=== PATIENT | female | born 1945 | race Hispanic/Latino ===

== ENCOUNTER 2020-01-21 15:09 | Outpatient (CLI) | payer MEDICARE, OTHER, SELFPAY ==
--- NOTE | ~2020-01-21 | MM_ITS ---
EXAMINATION: MM screening [facility] w lisa HISTORY: Screening mammogram TECHNIQUE: Craniocaudal and mediolateral oblique 3-D tomosynthesis images were obtained and synthetic 2-D images were generated. CAD analysis was submitted and interpreted. COMPARISON: 12/06/2018, 11/23/2017 bilateral digital screening mammogram examinations 11/29/2017 diagnostic left digital mammogram BREAST PARENCHYMAL COMPOSITION: The breasts are heterogeneously dense, which may obscure small masses . FINDINGS: Occasional benign calcifications. There is no evidence of suspicious mass, calcification, o r architectural distortion to suggest malignancy in either breast. There has been no suspicious inter junior change. IMPRESSION: 1. No mammographic evidence of malignancy. 2. Recommend routine screening mammography in one year. BI-RADS Category 2: Benign finding(s). Reviewed, dictated and finalized at location A.
== END 2020-01-21 15:10 | disposition home or self-care (01) ==
PROVIDERS: PCP Internal Medicine; Visit Provider Obstetrics & Gynecology Gynecology
DX: Z12.31 Encounter for screening mammogram for malignant neoplasm of breast (principal)
CPT/HCPCS: 77063; 77067

== ENCOUNTER 2020-09-23 13:56 | Emergency (ER) | payer MEDICARE, OTHER, SELFPAY ==
[2020-09-23] VITALS (14 sets, daily range): BP systolic 139–156; BP diastolic 91–100; PULSE 52–69; RESP 11–19; TEMP 36.5; O2SAT 94–100
--- NOTE | ~2020-09-23 | XR_ITS ---
EXAMINATION: XR knee RT min 4V DATE: 09/23/2020 15:47 INDICATION: Right knee injury. TECHNIQUE: 4 views of right knee were obtained. COMPARISON: Right knee radiographs 12/15/2017 FINDINGS: Bone alignment is normal. No fracture. There is mild tricompartmental osteoarthritis charac terized by tiny marginal osteophytes. No knee joint effusion. IMPRESSION: 1. Mild right knee osteoarthritis. Reviewed, dictated and finalized at location A.
--- NOTE | ~2020-09-23 | XR_ITS ---
XR wrist LT min 3V 09/23/2020 15:47 Indication: Left wrist pain Procedure: 4 views left wrist Comparison: No prior studies for comparison. Findings: Osteopenia. No fracture or traumatic malalignment. There are mild degenerative changes of t he first 6 carpometacarpal joint and MCP joints. Impression: 1: No acute fracture. Reviewed, dictated and finalized at location B. Impression: 1: No acute fracture.
--- NOTE | ~2020-09-23 | XR_ITS ---
EXAMINATION: XR chest 2V DATE: 09/23/2020 15:47 INDICATION: Atrial fibrillation. Fall. TECHNIQUE: Frontal and lateral views of the chest were obtained. COMPARISON: Chest 2 views 11/04/2005, CT abdomen and pelvis 01/17/2015 FINDINGS: There is mild atelectasis at left lung base. No pleural effusion or pneumothorax. Cardiomeg rose is noted. IMPRESSION: 1. Mild atelectasis at left lung base. 2. Cardiomegaly. Reviewed, dictated and finalized at location A.
--- NOTE | ~2020-09-23 | XR_ITS ---
XR hand LT min 3V 09/23/2020 15:46 Indication: Left hand pain Procedure: 3 views left hand Comparison: 09/23/2020 Findings: There is mild polyarticular osteoarthritis. There is a small radiopaque foreign body in the soft tissues overlying the first distal phalanx. There is a healed second metacarpal neck fracture. Osteopenia. No acute fracture or traumatic malalignment. Impression: 1: No acute fracture. 2: Small foreign body overlying the first distal phalanx Reviewed, dictated and finalized at location B. Impression: 1: No acute fracture. 2: Small foreign body overlying the first distal phalanx
--- NOTE | ~2020-09-23 | XR_ITS ---
XR knee LT min 4V 09/23/2020 15:46 Indication: Left ninth rib fracture. Procedure: 4 views of the left knee Comparison: 12/15/2017 Findings: There is mild osteoarthritis of the left knee. No fracture, subluxation or dislocation. Ost eopenia. Small joint effusion. Impression: 1: No acute fracture. Reviewed, dictated and finalized at location B. Impression: 1: No acute fracture.
--- NOTE | ~2020-09-23 | CT_ITS ---
EXAMINATION: CT lumbar spine wo con DATE: 09/23/2020 15:18 INDICATION: Low back pain. Fall. TECHNIQUE: Computed tomography (CT) of the lumbar spine was performed without intravenous contrast. A utomated exposure control and iterative reconstruction technique were employed. The dose-length produ ct was 1138.99 mGy-cm. COMPARISON: None FINDINGS: There is 7 degrees levocurvature of lumbar spine. Vertebral body heights are normal. There is decreased disc height at L3-L4 with interbody fusion. There is a benign bone island in L5 vertebra l body. The following disc levels are specifically discussed: L1-L2: The disc is bulging. There is mild bilateral facet joint osteoarthritis. There is mild bilater al neural foraminal stenosis. There is mild central canal stenosis. L2-L3: The disc is bulging. There is severe right and moderate left facet joint osteoarthritis. There is mild bilateral neural foraminal stenosis. There is mild central canal stenosis. L3-L4: There is ankylosis of the facet joints with moderate hypertrophy. There is mild right and mode rate left neural foraminal stenosis. There is no central canal stenosis. L4-L5: The disc is bulging. There is severe bilateral facet joint osteoarthritis. There is mild bilat eral neural foraminal stenosis. There is mild central canal stenosis. L5-S1: The disc does not extend beyond the endplate margin. There is severe bilateral facet joint ost eoarthritis. There is mild bilateral neural foraminal stenosis. There is no central canal stenosis. IMPRESSION: 1. No fracture. 2. Moderate lumbar spondylosis. Reviewed, dictated and finalized at location A.
--- NOTE | ~2020-09-23 | XR_ITS ---
XR wrist RT min 3V 09/23/2020 15:47 Indication: Right wrist pain Procedure: 4 views right wrist Comparison: 01/20/2007 Findings: No fracture, subluxation or dislocation. There is mild polyarticular osteoarthritis. No foc al soft tissue abnormality. No foreign bodies. Impression: 1: No acute fracture. Reviewed, dictated and finalized at location B. Impression: 1: No acute fracture.
--- NOTE | ~2020-09-23 | CT_ITS ---
EXAMINATION: CT brain wo con DATE: 09/23/2020 15:18 INDICATION: Status post fall. Head injury. Laceration to the nose. Patient on blood thinners. TECHNIQUE: Computed tomography (CT) of the head was performed without intravenous contrast. The dose- length product was 605.33 mGy-cm. Automated exposure control and iterative reconstruction technique w ere employed. COMPARISON: None FINDINGS: No acute intracranial hemorrhage, infarction, mass or mass effect. Mild generalized atrophy . There are scattered mild periventricular and subcortical white matter changes, most likely related to small vessel ischemic disease (microangiopathy). Paranasal sinuses and mastoids are pneumatized. N o depressed skull fractures. IMPRESSION: 1. No acute intracranial abnormality. 2: Chronic age-related findings. Reviewed, dictated and finalized at location B.
--- NOTE | ~2020-09-23 | CT_ITS ---
EXAMINATION: 1. CT facial & cervical spine wo DATE: 09/23/2020 15:18 INDICATION: Head injury with laceration to nose post fall. TECHNIQUE: 1. Computed tomography (CT) of the maxillofacial region and of the cervical spine were performed with out intravenous contrast. Sagittal and coronal reconstructions of both regions were obtained. Automat ed exposure control and iterative reconstruction technique were employed. The dose-length product was 358 mGy-cm. COMPARISON: None. FINDINGS: Maxillofacial CT: There is a deep laceration at the bridge of the nose which appears to extend to the level of the bone . There is a tiny minimally displaced fracture at the anterior tip of the right nasal bone with sligh tly deeper small focus of soft tissue gas consistent with an open fracture. No other maxillofacial fr actures identified. Specifically the maldonado of the orbits and paranasal sinuses, the zygomatic arches, pterygoid plates and mandible remain intact. Temporomandibular joints are normal alignment with mild osteoarthritis in the left and severe on the right. Bilateral orbits are normal. Mild mucosal thicke salma in the bilateral ethmoid and maxillary sinuses. Mastoid air cells and middle ear cavities are cl ear. Cervical spine CT: 13 degree lower cervical levocurvature. Sagittal alignment is normal. Vertebral body heights are norm al. No fracture and a cervical or visualized upper thoracic spine. Mild disc height loss at C5-C6 thr ough T2-T3. Bilateral multilevel mild to moderate cervical uncovertebral osteoarthritis most prominen t on the right at C4-C5 and C5-C6. There is also moderate bilateral multilevel cervical facet osteoar thritis. This results in moderate neural foraminal stenosis on the right at C4-C5 and C5-C6 with mini mal to mild neural foraminal stenosis at a few additional cervical levels on the left and right. No c entral canal stenosis. Minimal atelectasis at the apices of lungs likely related to expiratory phase of imaging. Status post thyroidectomy with multiple surgical clips at the thyroid bed. IMPRESSION: 1. Tiny minimally displaced fracture at the anterior tip of the right nasal bone which is likely open given the deep laceration and small focus of gas in the adjacent soft tissues. No other maxillofacia l fractures. 2. Mild cervical levocurvature with mild to moderate spondylosis but no acute osseous abnormality. Reviewed, dictated and finalized at location A. IMPRESSION: 1. Tiny minimally displaced fracture at the anterior tip of the right nasal bon e which is likely open given the deep laceration and small focus of gas in the adjacent soft tissues. No other maxillofacial fractures. 2. Mild cervical levocurvature with mild to moderate spondylosis but no acute o sseous abnormality.
--- NOTE | 2020-09-23 16:29 | ED.FALL ---
HPI - Fall General Chief Complaint: Fall <DO Gisele Cifuentes Last Filed: 09/23/20 17:01> Stated Complaint: FALL <DO Gisele Cifuentes Last Filed: 09/23/20 17:01> Time Seen by Provider: 09/23/20 14:24 <DO Gisele Cifuentes Last Filed: 09/23/20 17:01> History of Present Illness HPI Narrative: Patient presents to emergency department from home via EMS for fall. Patient states that she was walking carrying a box and trying to attempt to open a door when she slipped and fell she states that she did strike her face and has a laceration of her nose she notes pain in the posterior neck as well as the bilateral wrists as well as the bilateral knees she was able to get up and walk following the fall patient states she is on blood thinner she is unsure of her last tetanus shot she denies any loss of consciousness, chest pain shortness of breath, numbness or tingling in the extremities or any other symptoms <DO Gisele Cifuentes Last Filed: 09/23/20 17:01> Related Data Allergies/Adverse Reactions: Allergies Allergy/AdvReac Type Severity Reaction Status Date / Time Quinolones Allergy Mild Anaphylactic Verified 07/29/15 21:26 Shock aspirin Allergy Unknown Verified 08/14/15 13:53 ciprofloxacin Allergy Unknown Verified 12/18/17 16:07 iodine Allergy Unknown Verified 12/18/17 16:07 Contrast Media Allergy Mild Anaphylactic Uncoded 07/29/15 21:26 Shock <DO Gisele Cifuentes Last Filed: 09/23/20 17:01> Review of Systems Review of Systems: Narrative: Gen.: Denies fevers or chills Eyes: Denies eye pain or visual change ENT: Denies congestion Respiratory: Denies shortness of breath or cough CV: Denies chest pain or palpitations GI: Denies abdominal pain nausea, emesis or diarrhea Musculoskeletal: See HPI Neuro: Denies numbness, tingling, weakness or focal weakness Skin: Reports laceration to the Except as documented, all other systems reviewed and negative <DO Gisele Cifuentes Last Filed: 09/23/20 17:01> [facility] Past Medical History Medical History: Medical History (Updated 09/23/20 @ 17:00 by Sree Sharma DO) Hypercholesterolemia <Sree Sharma DO - Last Filed: 09/23/20 17:01> Family History Family History: Family History (Updated 12/18/17 @ 16:13 by DOCTOR UNKNOWN) Other Family history of arthritis <Sree Sharma DO - Last Filed: 09/23/20 17:01> Social History Social History: Social History Smoking status: Never smoker Alcohol intake: never <Sree Sharma DO - Last Filed: 09/23/20 17:01> Exam Narrative: Exam Narrative: APPEARANCE: No acute distress, nontoxic, resting in bed EYES: EOMI, PERRL HEENT: Normocephalic, superficial abrasions over forehead with a 2 cm laceration over the bridge of the nose with overlying macerated skin and swelling with mild bleeding no tenderness of the bilateral zygomatic arch full range of motion of the jaw without pain Neck: Supple no midline tenderness palpation tender palpation bilateral paravertebral muscles C5-7 RESPIRATORY: No respiratory distress Clear to auscultation bilaterally with no rhonchi wheezing or rales. CARDIOVASCULAR: Regular rate and rhythm without murmurs rubs or gallops. ABDOMINAL: Soft, nontender, nondistended, no rebound or guarding Back: No midline thoracic lumbar tenderness palpation tender palpation bilateral para 2 muscles L1-3 MUSCULOSKELETAl: Moves all extremities. No clubbing, cyanosis or edema. Tender to palpation of the bilateral dorsal wrist no swelling or ecchymosis no tenderness of the bilateral elbows or shoulders tenderness palpation over the base of the first and second digit over the palmar aspect full flexion-extension of all 5 MCP and IP joints bilateral radial pulse 2+, no tenderness of the bilateral hips or ankles, the bilateral anterior knees are tender palpation with a superficial abrasion over the l
[2020-09-23] MEDS: TETANUS,DIPHTHERIA,AC PERTUSSIS ADULT (0.5 ML) BOOSTRIX IM (16:48)
[2020-09-23] MEDS: CEPHALEXIN 500 MG CAPSULE PO (16:49)
== END 2020-09-23 17:10 | disposition home or self-care (01) ==
PROVIDERS: Emergency Provider Emergency Medicine; PCP Internal Medicine
DX: S02.2XXB Fracture of nasal bones, initial encounter for open fracture (principal); S80.212A Abrasion, left knee, initial encounter; S60.212A Contusion of left wrist, initial encounter; S60.211A Contusion of right wrist, initial encounter; M54.5 Low back pain; Z23 Encounter for immunization; W01.0XXA Fall on same level from slipping, tripping and stumbling without subsequent striking against object, initial encounter
CPT/HCPCS: 12011; 70450; 70486; 71046; 72125; 72131; 73110; 73130; 73564; 90471; 90715; 99284; A9270

== ENCOUNTER 2020-12-18 10:46 | Outpatient (CLI) | payer MEDICARE, OTHER, SELFPAY ==
[2020-12-18 13:37] LABS: Thyroid Stimulating Hormone 0.944 uIU/mL (0.465-4.680)
== END 2020-12-18 10:47 | disposition home or self-care (01) ==
LOC: ANHLAB 10:52
PROVIDERS: PCP Internal Medicine; Visit Provider Internal Medicine Endocrinology, Diabetes & Metabolism
DX: E89.0 Postprocedural hypothyroidism (principal)
CPT/HCPCS: 36415; 84443

== ENCOUNTER 2021-02-10 08:38 | Outpatient (CLI) | payer MEDICARE, OTHER, SELFPAY ==
--- NOTE | ~2021-02-10 | MM_ITS ---
EXAMINATION: MM screening [facility] BI w lisa HISTORY: Screening mammogram TECHNIQUE: Craniocaudal and mediolateral oblique 3-D tomosynthesis images were obtained and synthetic 2-D images were generated. CAD analysis was submitted and interpreted. COMPARISON: 01/21/2020, 12/06/2018 BREAST PARENCHYMAL COMPOSITION: The breasts are heterogeneously dense, which may obscure small masses . FINDINGS: There is an approximately 7 mm partially calcified circumscribed mass, consistent with smal l benign fibroadenoma. There is no evidence of suspicious mass, calcification, or architectural dis tortion to suggest malignancy in either breast. There has been no suspicious interval change. IMPRESSION: 1. No mammographic evidence of malignancy. 2. Recommend routine screening mammography in one year. BIRADS Category 2: Benign Reviewed, dictated and finalized at location A. 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
== END 2021-02-10 08:39 | disposition home or self-care (01) ==
LOC: ANHIMG 08:41
PROVIDERS: PCP Internal Medicine; Visit Provider Obstetrics & Gynecology Gynecology
DX: Z12.31 Encounter for screening mammogram for malignant neoplasm of breast (principal)
CPT/HCPCS: 77063; 77067

== ENCOUNTER 2021-03-05 07:51 | Outpatient (CLI) | payer MEDICARE, OTHER, SELFPAY ==
--- NOTE | ~2021-03-05 | DEXA_ITS ---
Bone Density Report Name: Vanessa Hong Age: 76 Sex: Female Ethnicity: White Date of : 1945 Indication: osteopenia; monitoring treatment; parental hip fracture; height loss; postmenopausal Referring Provider: JONATHON PENA Study: Bone densitometry was performed. Exam Date: March 05, 2021 Accession number: [id number] Bone Density: Region BMD T-score Z-score Classification AP Spine (L1-L4) 0.864 -1.7 0.7 Osteopenia Femoral Neck (Left) 0.552 -2.7 -0.6 Osteoporosis Total Hip (Left) 0.697 -2.0 -0.3 Osteopenia Total Hip Bilateral Avg 0.719 -1.9 -0.1 Osteopenia Femoral Neck (Right) 0.602 -2.2 -0.2 Osteopenia Total Hip (Right) 0.740 -1.7 0.1 Osteopenia World Health Organization criteria for BMD impression classify patients as: Normal (T-score at or above -1.0), Osteopenia (T-score between -1.0 and -2.5), or Osteoporosis (T-score at or below -2.5). 10-year Fracture Risk: FRAX not reported because: Some T-score for Spine Total or Hip Total or Femoral Neck at or below -2.5 Treated for osteoporosis Previous Exams: Region Exam Age BMD T-score BMD Change BMD Change Date g/cm2 vs Baseline vs Previous AP Spine(L1-L4) 03/05/2021 76 0.864 -1.7 0.079(10.1%)# 0.037(4.5%)* 12/06/2018 73 0.827 -2.0 0.042(5.4%)# 0.023(2.9%)* 10/17/2014 69 0.804 -2.2 0.019(2.4%)# 0.019(2.4%)# 12/04/2004 59 0.785 -2.4 Total Hip(Left) 03/05/2021 76 0.697 -2.0 -0.040(-5.4%)# -0.011(-1.5%) 12/06/2018 73 0.708 -1.9 -0.029(-3.9%)# -0.006(-0.8%) 10/22/2016 71 0.714 -1.9 -0.023(-3.1%)# 0.014(2.0%) 10/17/2014 69 0.700 -2.0 -0.037(-5.0%)# 0.001(0.2%)# 09/25/2012 67 0.699 -2.0 -0.038(-5.2%)# -0.038(-5.2%)# 12/04/2004 59 0.737 -1.7 Total Hip(Right) 03/05/2021 76 0.740 -1.7 -0.091(-11.0%) -0.037(-4.8%)* 12/06/2018 73 0.777 -1.3 -0.054(-6.5%)# -0.047(-5.7%)* 10/22/2016 71 0.824 -1.0 -0.007(-0.9%)# 0.051(6.6%)* 10/17/2014 69 0.773 -1.4 -0.058(-7.0%)# -0.001(-0.1%)# 09/25/2012 67 0.774 -1.4 -0.057(-6.9%)# -0.057(-6.9%)# 12/04/2004 59 0.831 -0.9 *Denotes significance at 95% confidence level, LSC for AP Spine = 0.022 g/cm2, LSC for Total Hip = 0.027 g/cm2 Clinical Information Provided by Patient: Parent has had a hip fracture Is being treated for osteoporosis Has used the following medications: Prolia (i.e. denosumab), Vitamin D Patient maximum height was 65 Menopause Age: 54 No regular weight bearing exercise Does not regularly c
== END 2021-03-05 07:52 | disposition home or self-care (01) ==
LOC: ANHIMG 07:52
PROVIDERS: PCP Internal Medicine; Visit Provider Obstetrics & Gynecology Gynecology
DX: Z78.0 Asymptomatic menopausal state (principal); M81.0 Age-related osteoporosis without current pathological fracture; M85.851 Other specified disorders of bone density and structure, right thigh; M85.852 Other specified disorders of bone density and structure, left thigh
CPT/HCPCS: 77080

== ENCOUNTER 2021-06-10 21:32 | Emergency (ER) | payer MEDICARE, OTHER, SELFPAY ==
--- NOTE | ~2021-06-10 | XR_ITS ---
EXAMINATION: XR foot RT min 3V DATE: 06/10/2021 21:53 INDICATION: Generalized right foot pain TECHNIQUE: Dorsoplantar, two oblique and lateral views of the right foot were obtained. COMPARISON: 04/30/2005 FINDINGS: Diffuse osteopenia. Alignment is normal. No acute fracture. Small corticated heterotopic ossicle vers us chronic nonunited fracture fragment along the anterior rim of the tibial plafond. Minimal to mild polyarticular osteoarthritis at multiple joints in the mid and forefoot. No erosions or periosteal re action. Soft tissues are unremarkable. No ankle joint effusion. IMPRESSION: 1. No acute osseous abnormality. Reviewed, dictated and finalized at location A. 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
[2021-06-10 21:35] VITALS: BP 149/95; PULSE 78; RESP 17; TEMP 36.6; O2SAT 100
--- NOTE | 2021-06-10 22:23 | ED.EXTPRO ---
HPI - Extremity Problem General Chief complaint: Extremity Problem,Nontraumatic Stated complaint: FOOT PAIN, NO INJURY Time Seen by Provider: 06/10/21 21:55 Source: patient Mode of arrival: EMS Limitations: no limitations History of Present Illness HPI Narrative: 76 year old female presents today with complaints of right foot pain that started tonight around 530. Patient denies trauma. States she was getting up and started to walk when the pain hit. Patient denies taking any medication for the pain at home. Denies pain getting better with ambulation. Patient had walked upstairs to get some tylenol and ended up calling 911 due to the pain. Related Data Home Medications Medication Instructions Recorded Confirmed alprazolam [Xanax] PO 03/17/21 atorvastatin PO 03/17/21 metoprolol succinate PO 03/17/21 rivaroxaban [Xarelto] PO 03/17/21 sertraline PO 03/17/21 Allergies Allergy/AdvReac Type Severity Reaction Status Date / Time Quinolones Allergy Mild Anaphylactic Verified 06/01/21 10:07 Shock aspirin Allergy Unknown Unknown Verified 06/01/21 10:07 ciprofloxacin Allergy Unknown Unknown Verified 06/01/21 10:07 iodine Allergy Unknown unknown Verified 06/01/21 10:07 Contrast Media Allergy Mild Anaphylactic Uncoded 06/01/21 10:07 Shock Review of Systems Review of Systems: CONSTITUTIONAL: Denies fever, chills, or sweats. EYES: Denies visual changes, redness, or discharge. ENT: Denies rhinorrhea, congestion, sore throat, or otalgia. CARDIOVASCULAR: Denies chest pain, palpitations, or edema. RESPIRATORY: Denies cough or dyspnea. GASTROINTESTINAL: Denies abdominal pain, nausea, vomiting, or diarrhea. GENITOURINARY: Denies dysuria or hematuria. SKIN: Denies rash or itching. MUSCULOSKELETAL: Right foot pain. Denies back pain, joint pain, or myalgia. NEUROLOGIC: Denies headache, numbness, dizziness, or weakness. PSYCHIATRIC: Denies anxiety or depression. [facility] Past Medical History Medical History Anxiety Arthritis Atrial fib/flutter, transient Depression Diarrhea Hair loss Hearing loss HLD (hyperlipidemia) HTN (hypertension) Hypercholesterolemia Hyperthyroidism Left knee DJD Osteopenia Right knee DJD Urinary frequency Wears glasses Surgical History Surgical History H/O thyroidectomy 2012 per patient questionnaire Family History Family History Other Family history of arthritis Social History Social History Smoking status: Never smoker Alcohol intake: never Substance use: never Substance use type: does not use Gender identity (if verbalized by the patient): Female Exam Narrative: GENERAL: Well-appearing, well-nourished, and in no acute distress. HEAD: Normocephalic, atraumatic. EYES: PERRLA and EOMI. ENT: Nares clear, no rhinorrhea or epistaxis. Mucous membranes moist. Oropharynx without tonsillar hypertrophy exudate or other lesions. Bilateral TMs pearly powers nonbulging NECK: Supple. No adenopathy or masses. No carotid bruits or JVD CHEST: Clear to auscultation. No respiratory distress. No wheezes rales or rhonchi HEART: Regular rate and rhythm. No murmur heard. Normal peripheral pulses. ABDOMEN: Soft, nontender, nondistended, normal active bowel sounds. EXTREMITIES: Pain to right heel and arch of foot on palpation normal range of motion. No edema. SKIN: Warm, dry, no rash. NEURO: No focal deficits. Alert and oriented x3. PSYCH: Normal mood and affect. Course Course Emergency Course: Patient and son aware of xray results. Plan discharge home. Tylenol for pain and to use a supportive shoe. Follow up with primary if pain persists. Patient and son in agreement with plan of care. Vital Signs Vital signs: Vital Signs Temperature 36.6 C 06/10/21 21:35 P
[2021-06-10] MEDS: ACETAMINOPHEN 500 MG TABLET 1000 MG PO (22:37)
== END 2021-06-10 23:00 | disposition home or self-care (01) ==
PROVIDERS: Emergency Provider Nurse Practitioner Family; PCP Internal Medicine
DX: M19.071 Primary osteoarthritis, right ankle and foot (principal); E78.5 Hyperlipidemia, unspecified; I10 Essential (primary) hypertension; E78.00 Pure hypercholesterolemia, unspecified; M85.80 Other specified disorders of bone density and structure, unspecified site; M17.0 Bilateral primary osteoarthritis of knee; F41.9 Anxiety disorder, unspecified; E89.0 Postprocedural hypothyroidism; Z79.01 Long term (current) use of anticoagulants; I48.91 Unspecified atrial fibrillation; I48.92 Unspecified atrial flutter
CPT/HCPCS: 73630; 99283; A9270

== ENCOUNTER 2021-11-05 11:05 | Outpatient (CLI) | payer MEDICARE, OTHER, SELFPAY ==
--- NOTE | ~2021-11-05 | XR_ITS ---
EXAMINATION: XR shoulder RT min 2V DATE: 11/05/2021 11:59 INDICATION: Right shoulder pain. TECHNIQUE: 4 views of right shoulder were obtained. COMPARISON: None. FINDINGS: Bone alignment is normal. No fracture. There is mild osteoarthritis of acromioclavicular radha int and glenohumeral joint. Surgical clips overlie the neck. IMPRESSION: 1. Mild polyarticular osteoarthritis. Reviewed, dictated and finalized at location A.
[2021-11-05 11:49] LABS: Basophils Absolute Auto 0.1 K/mm3 (0.0-0.1); Basophils Percent Auto 1.4 % (0.2-1.2); Eosinophils Absolute Auto 0.1 K/mm3 (0-0.3); Hematocrit 43.8 % (37.0-47.0); Hemoglobin 13.9 g/dL (12.0-15.0); Immature Granulocyte Absolute 0.01 K/mm3 (0.00-0.031); Immature Granulocyte Percent A 0.2 % (0-0.5); Lymphocytes Absolute Auto 1.44 K/mm3 (0.9-3.2); Lymphocytes Percent Auto 28.6 % (18.3-44.2); Mean Corpuscular HGB Conc 31.7 g/dl (32-36); Mean Corpuscular Hemoglobin 31.1 pg (26-34); Mean Platelet Volume 10.4 fl (7.4-10.4); Monocytes Absolute Auto 0.3 K/mm3 (0.1-0.6); Monocytes Percent Auto 6.5 % (2.6-8.5); Neutrophils Absolute Auto 3.1 K/mm3 (1.3-6.7); Neutrophils Percent Auto 61.3 % (45.5-73.1); Platelet Count Result 162 k/mm3 (150-375); Red Blood Count 4.47 M/mm3 (4.2-5.4); Red Cell Distribution Width 13.8 % (11.5-14.5)
[2021-11-05 11:54] LABS: Alanine Aminotransferase 21 U/L (6-35); Albumin Level 4.2 g/dL (3.5-5.1); Alkaline Phosphatase 91 U/L (38-126); Anion Gap 10 mmol/L (8-16); Aspartate Amino Transferase 25 U/L (14-36); Bilirubin,Total 0.9 mg/dL (0.2-1.3); Blood Urea Nitrogen 14 mg/dL (7-17); Calcium 10.5 mg/dL (8.4-10.2); Carbon Dioxide 26 mmol/L (22-30); Chloride 106 mmol/L (98-107); Cholesterol 147 mg/dL (0-200); Estimated Glomerular Filt Rate > 60; Glucose 92 mg/dL (65-110); HDL Direct 59 mg/dL; Sodium 142 mmol/L (137-145); Triglycerides 114 mg/dL (<150)
[2021-11-05 12:05] LABS: LDL Cholesterol Direct 55 mg/dL
[2021-11-05 12:56] LABS: Vitamin D 25 Hydroxy 79.9 ng/mL
== END 2021-11-05 11:06 | disposition home or self-care (01) ==
PROVIDERS: PCP Internal Medicine; Visit Provider Internal Medicine
DX: M25.511 Pain in right shoulder (principal); I10 Essential (primary) hypertension; E78.5 Hyperlipidemia, unspecified; I48.91 Unspecified atrial fibrillation; Z79.899 Other long term (current) drug therapy; M19.011 Primary osteoarthritis, right shoulder
CPT/HCPCS: 36415; 73030; 80053; 80061; 82306; 85025

== ENCOUNTER 2022-03-04 00:29 | Day surgery (SDC) | payer MEDICARE, OTHER, SELFPAY ==
[2022-02-23 10:55] VITALS: BMI 29.0
--- NOTE | 2022-03-03 16:44 | PM.HPGS ---
History of Present Illness History of Present Illness Consent: Risks, benefits, and alternatives have been discussed and questions answered. Patient agrees to proceed with procedure. Chief complaint: Hx of colon polyps Narrative: Vanessa Hong is a 77 year old female Who was referred for colon cancer screening. She had a tubular adenoma removed 5 years ago. Review of Systems Review of Systems: All systems reviewed & are unremarkable except as noted in HPI and below PMFSH Past Medical History Medical History Anxiety Arthritis Atrial fib/flutter, transient Depression Diarrhea Hair loss Hearing loss HLD (hyperlipidemia) HTN (hypertension) Hypercholesterolemia Hyperthyroidism Left knee DJD Osteopenia Right knee DJD Urinary frequency Wears glasses Surgical History Surgical History H/O thyroidectomy 2013 per patient questionnaire Family History Family History Other Family history of arthritis Social History Social History Smoking status: Never smoker Alcohol intake: former Substance use: never Substance use type: does not use Living arrangements: alone Gender identity (if verbalized by the patient): Female Spiritual care concerns: No Meds Home Medications and Allergies Home Medications Medication Instructions Recorded Confirmed Type acetaminophen 650 mg 650 mg PO Q8H PRN Pain 01/26/22 01/26/22 History tablet,extended release alprazolam 0.25 mg tablet 0.25 mg PO BID 01/26/22 02/23/22 History atorvastatin 10 mg tablet 10 mg PO DAILY 01/26/22 02/23/22 History levothyroxine 88 mcg tablet 88 mcg PO DAILY 01/26/22 02/23/22 History metoprolol succinate 50 mg 50 mg PO DAILY 01/26/22 02/23/22 History tablet,extended release 24 hr oxybutynin chloride 15 mg 15 mg PO DAILY 01/26/22 02/23/22 History tablet,extended release 24 hr pantoprazole 40 mg tablet,delayed 40 mg PO QAM PRN reflux 01/26/22 02/23/22 History release rivaroxaban 20 mg tablet (Xarelto) 20 mg PO QACDINNER 01/26/22 02/23/22 History sertraline 25 mg tablet 25 mg PO DAILY 01/26/22 02/23/22 History cholecalciferol (vitamin D3) 100 200 mcg PO HS 02/23/22 02/23/22 History mcg (4,000 unit) capsule denosumab 60 mg/mL subcutaneous 60 mg subcut [id number] 02/23/22 02/23/22 History syringe (Prolia) Allergies Allergy/AdvReac Type Severity Reaction Status Date / Time ciprofloxacin Allergy Severe Anaphylactic Verified 03/04/22 11:22 Shock iodine Allergy Severe Anaphylactic Verified 03/04/22 11:22 Shock Quinolones Allergy Severe Anaphylactic Verified 03/04/22 11:22 Shock aspirin AdvReac Severe Other Verified 03/04/22 11:22 Contrast Media Allergy Severe Anaphylactic Uncoded 02/23/22 10:56 Shock Exam Const: General: alert Orientation/consciousness: patient oriented x3 Resp: Auscultation: clear to auscultation bilaterally Cardio: Rate: regular rate Rhythm: regular rhythm GI: GI Palp: Yes Soft to palpation and No Tenderness to palpation present (GI) Neuro: General: patient oriented x3 Assessment and Plan Assessment and plan (1) Colon cancer screening: Code(s): Z12.11 - Encounter for screening for malignant neoplasm of colon Status: Acute Assessment and Plan: Colonoscopy with possible biopsy or polypectomy or cautery or injection of substances.
[2022-03-04 11:23] VITALS: BP 126/109; PULSE 95; RESP 16; TEMP 36.4; O2SAT 100
[2022-03-04] MEDS: LACTATED RINGERS 1,000 ML 150 ML IV CONT (11:31)
--- NOTE | 2022-03-04 11:44 | WPDANESEPPF ---
Anes - Initial Pre Proc Eval Procedure: Operation Date: 03/04/22 12:30 Proposed Procedures p Screening Colonoscopy - Adonay Diaz MD Date/Time: 03/04/22 11:44 Surgeon: Adonay Diaz MD Pre Op Diagnosis: Hx of colon polyps Patient Data Age: 77 Gender: F Height: 1.65 m Weight: 75.5 kg Last Vital Signs Temp 36.4 C 03/04/22 11:23 Pulse 95 03/04/22 11:23 Resp 16 03/04/22 11:23 BP 126/109 H 03/04/22 11:23 Pulse Ox 100 03/04/22 11:23 O2 Del Method Room Air 03/04/22 11:23 Allergies Allergy/AdvReac Type Severity Reaction Status Date / Time ciprofloxacin Allergy Severe Anaphylactic Verified 03/04/22 11:22 Shock iodine Allergy Severe Anaphylactic Verified 03/04/22 11:22 Shock Quinolones Allergy Severe Anaphylactic Verified 03/04/22 11:22 Shock aspirin AdvReac Severe Other Verified 03/04/22 11:22 Contrast Media Allergy Severe Anaphylactic Uncoded 02/23/22 10:56 Shock Home Medications Medication Instructions Recorded Confirmed Type acetaminophen 650 mg 650 mg PO Q8H PRN Pain 01/26/22 01/26/22 History tablet,extended release alprazolam 0.25 mg tablet 0.25 mg PO BID 01/26/22 02/23/22 History atorvastatin 10 mg tablet 10 mg PO DAILY 01/26/22 02/23/22 History levothyroxine 88 mcg tablet 88 mcg PO DAILY 01/26/22 02/23/22 History metoprolol succinate 50 mg 50 mg PO DAILY 01/26/22 02/23/22 History tablet,extended release 24 hr oxybutynin chloride 15 mg 15 mg PO DAILY 01/26/22 02/23/22 History tablet,extended release 24 hr pantoprazole 40 mg tablet,delayed 40 mg PO QAM PRN reflux 01/26/22 02/23/22 History release rivaroxaban 20 mg tablet (Xarelto) 20 mg PO QACDINNER 01/26/22 02/23/22 History sertraline 25 mg tablet 25 mg PO DAILY 01/26/22 02/23/22 History cholecalciferol (vitamin D3) 100 200 mcg PO HS 02/23/22 02/23/22 History mcg (4,000 unit) capsule denosumab 60 mg/mL subcutaneous 60 mg subcut [id number] 02/23/22 02/23/22 History syringe (Prolia) Patient hx anesthesia problems: none Family hx anesthesia problems: none Results Review: All pre-operative results and documents have been reviewed as part of the pre-operative evaluation. [facility] Past Medical History Medical History Anxiety Arthritis Atrial fib/flutter, transient Depression Diarrhea Hair loss Hearing loss HLD (hyperlipidemia) HTN (hypertension) Hypercholesterolemia Hyperthyroidism Left knee DJD Osteopenia Right knee DJD Urinary frequency Wears glasses Surgical History Surgical History H/O thyroidectomy 2013 per patient questionnaire Family History Family History Other Family history of arthritis Social History Social History Smoking status: Never smoker Alcohol intake: former Substance use: never Substance use type: does not use Living arrangements: alone Gender identity (if verbalized by the patient): Female Spiritual care concerns: No Anes - Eval Final PreProcedure Day of Procedure 03/04/22 11:44 Patient weight: overweight Heart: regular rate and rhythm Lungs: clear to auscultation Airway: Mallampati scale class II Neurological: alert and oriented Last oral intake: >/= 8 hours ASA classification: III Emergent: no Anesthetic plan: proceed Anesthesia type and monitoring: general GIVS and standard monitoring Results Review: All pre-operative results and documents have been reviewed as part of the pre-operative evaluation. Informed Consent: The patient's anesthetic plan and its attendant risks and benefits were discussed with the patient/family/POA. Questions were solicited and answers provided to the satisfaction of the patient/family/POA.
[2022-03-04 12:19] VITALS: BP 86/52; PULSE 102; RESP 21; O2SAT 93
[2022-03-04 12:29] VITALS: BP 91/54; PULSE 108; RESP 21; O2SAT 95
[2022-03-04 12:39] VITALS: BP 106/55; PULSE 100; RESP 18; O2SAT 99
== END 2022-03-04 12:49 | disposition home or self-care (01) ==
PROVIDERS: PCP Internal Medicine; Visit Provider Internal Medicine Gastroenterology
PROC: 0DJD8ZZ Inspection of Lower Intestinal Tract, Via Natural or Artificial Opening Endoscopic (ICD-10-PCS; CPT 45378; principal; 2022-03-04 12:30)
DX: Z12.11 Encounter for screening for malignant neoplasm of colon (principal); K51.40 Inflammatory polyps of colon without complications; K64.8 Other hemorrhoids; I10 Essential (primary) hypertension; E78.5 Hyperlipidemia, unspecified; F41.9 Anxiety disorder, unspecified; F32.A Depression, unspecified; M85.80 Other specified disorders of bone density and structure, unspecified site; I48.91 Unspecified atrial fibrillation; Z79.01 Long term (current) use of anticoagulants
CPT/HCPCS: 45385; 88305; J2704; J7120

== ENCOUNTER 2022-06-13 12:09 | Outpatient (CLI) | payer MEDICARE, OTHER, SELFPAY ==
--- NOTE | ~2022-06-13 | MM_ITS ---
EXAMINATION: MM screening michelle BI w lisa HISTORY: Screening mammogram TECHNIQUE: Craniocaudal and mediolateral oblique 3-D tomosynthesis images were obtained and synthetic 2-D images were generated. CAD analysis was submitted and interpreted. COMPARISON: 02/10/2021, 01/21/2020, 12/06/2018 lateral screening mammogram examinations BREAST PARENCHYMAL COMPOSITION: The breasts are heterogeneously dense, which may obscure small masses . FINDINGS: There is stable fibroglandular asymmetry. There is no evidence of suspicious mass, calcific ation, or architectural distortion to suggest malignancy in either breast. There has been no suspicio us interval change. IMPRESSION: 1. No mammographic evidence of malignancy. 2. Recommend routine screening mammography in one year. BI-RADS Category 1: Negative Reviewed, dictated and finalized at location A.
== END 2022-06-13 12:10 | disposition home or self-care (01) ==
LOC: ANHIMG 12:12
PROVIDERS: PCP Internal Medicine; Visit Provider Obstetrics & Gynecology Gynecology
DX: Z12.31 Encounter for screening mammogram for malignant neoplasm of breast (principal)
CPT/HCPCS: 77063; 77067

== ENCOUNTER 2022-07-07 10:15 | Outpatient (CLI) | payer MEDICARE, OTHER, SELFPAY ==
[2022-07-07 10:57] LABS: Alanine Aminotransferase 22 U/L (6-35); Albumin Level 4.7 g/dL (3.5-5.1); Alkaline Phosphatase 165 U/L (38-126); Anion Gap 8 mmol/L (8-16); Aspartate Amino Transferase 24 U/L (14-36); Bilirubin,Total 0.7 mg/dL (0.2-1.3); Blood Urea Nitrogen 17 mg/dL (7-17); Calcium 11.4 mg/dL (8.4-10.2); Carbon Dioxide 29 mmol/L (22-30); Chloride 107 mmol/L (98-107); Cholesterol 177 mg/dL (0-200); Estimated Glomerular Filt Rate > 60; Glucose 129 mg/dL (65-110); HDL Direct 70 mg/dL; Potassium 4.3 mmol/L (3.4-5.0); Sodium 144 mmol/L (137-145); Triglycerides 71 mg/dL (<150)
[2022-07-07 11:08] LABS: LDL Cholesterol Direct 77 mg/dL
== END 2022-07-07 10:16 | disposition home or self-care (01) ==
PROVIDERS: PCP Internal Medicine; Visit Provider Internal Medicine
DX: I10 Essential (primary) hypertension (principal); E78.5 Hyperlipidemia, unspecified
CPT/HCPCS: 36415; 80053; 80061

== ENCOUNTER 2022-11-07 13:36 | Outpatient (CLI) | payer MEDICARE, OTHER, SELFPAY ==
--- NOTE | ~2022-11-07 | XR_ITS ---
EXAMINATION:XR cervical spine 4-5V DATE: 11/07/2022 13:55 INDICATION: Neck pain TECHNIQUE: AP, lateral and odontoid views of the cervical spine are provided. COMPARISON: Cervical spine CT dated 09/23/2020 FINDINGS: Mild levocurvature at the cervicothoracic junction with partially visualized mild dextrocurvature in the upper thoracic spine. Sagittal alignment is normal. Odontoid is intact. Normal atlantoaxial inte rval. Vertebral body heights are normal. Disc spaces are normal. Multilevel bilateral mild to moderat e cervical facet osteoarthritis. There is mild to moderate uncovertebral osteoarthritis at the profil ed uncovertebral joints. Surgical clips at the anterior lower cervical spine consistent with prior th yroidectomy. Prevertebral soft tissues are normal. Visualized portion of the upper lungs are clear. IMPRESSION: 1. Mild to moderate cervical facet and uncovertebral osteoarthritis. Reviewed, dictated and finalized at location B.
== END 2022-11-07 13:37 | disposition home or self-care (01) ==
LOC: ANHIMG 13:41
PROVIDERS: PCP Internal Medicine; Visit Provider Internal Medicine
DX: M54.2 Cervicalgia (principal); M85.88 Other specified disorders of bone density and structure, other site
CPT/HCPCS: 72050

== ENCOUNTER 2023-05-15 12:52 | Outpatient (CLI) | payer MEDICARE, OTHER, SELFPAY ==
--- NOTE | ~2023-05-15 | XR_ITS ---
EXAMINATION: XR knee LT 3V DATE: 05/15/2023 13:11 INDICATION: Left knee pain and swelling. TECHNIQUE: 3 views of left knee including standing views were obtained. COMPARISON: Left knee radiographs 01/26/2021 FINDINGS: Bone alignment is normal. No fracture. There is mild tricompartmental osteoarthritis. No kn ee joint effusion. IMPRESSION: 1. Mild left knee osteoarthritis. Reviewed, dictated and finalized at location A. [facility] [employer]
== END 2023-05-15 12:53 | disposition home or self-care (01) ==
PROVIDERS: PCP Internal Medicine; Visit Provider Internal Medicine
DX: M17.12 Unilateral primary osteoarthritis, left knee (principal)
CPT/HCPCS: 73562

== ENCOUNTER 2023-06-28 10:44 | Outpatient (CLI) | payer MEDICARE, OTHER, SELFPAY ==
--- NOTE | ~2023-06-28 | DEXA_ITS ---
Bone Density Report Name: RASHMI SNEED Age: 78 Sex: Female Ethnicity: White Date of : 1945 Indication: postmenopausal; screening for osteoporosis; height loss; Referring Provider: JONATHON PENA Study: Bone densitometry was performed. Exam Date: June 28, 2023 Accession number: [id number] Bone Density: Region BMD T-score Z-score Classification AP Spine(L1-L4) 0.878 -1.5 0.9 Osteopenia Femoral Neck (Left) 0.508 -3.1 -0.9 Osteoporosis Total Hip (Left) 0.695 -2.0 -0.2 Osteopenia Femoral Neck (Right) 0.617 -2.1 0.1 Osteopenia Total Hip (Right) 0.783 -1.3 0.6 Osteopenia Total Hip Mean 0.739 -1.7 0.2 Osteopenia World Health Organization criteria for BMD impression classify patients as: Normal (T-score at or above -1.0), Osteopenia (T-score between -1.0 and -2.5), or Osteoporosis (T-score at or below -2.5). 10-year Fracture Risk: FRAX not reported because: Some T-score for Spine Total or Hip Total or Femoral Neck at or below -2.5 Treated for osteoporosis Clinical Information Provided by Patient: Is being treated for osteoporosis Has used the following medications: Prolia (i.e. denosumab), Vitamin D Patient maximum height was 64 Menopause Age: 54 Does not regularly consume dairy products Drinks caffeinated beverages Onset of menses at age 17 Number of children 0 Impression: The patient has osteoporosis, based on the Left Femoral Neck T-score. Discussion: It is important to ask patients whether they are taking their medications and to encourage continued and appropriate compliance with their osteoporosis therapies to reduce fracture risk. It is also important to review their risk factors and encourage appropriate calcium and vitamin D intakes, exercise, fall prevention and other lifestyle measures. Follow-Up: Consider a repeat BMD and Vertebral Fracture Assessment (VFA) exam in 2 years or sooner if medically necessary, to reassess this patient's status. Reported by: RENETTA on 06/28/2023 11:25:00 AM. Reviewed, dictated and finalized at location ATyree WINN
--- NOTE | ~2023-06-28 | MM_ITS ---
EXAMINATION: MM screening michelle BI w lisa HISTORY: Screening mammogram TECHNIQUE: Craniocaudal and mediolateral oblique 3-D tomosynthesis images were obtained and synthetic 2-D images were generated. CAD analysis was submitted and interpreted. COMPARISON: 06/13/2022, 02/10/2021 bilateral screening mammogram examinations BREAST PARENCHYMAL COMPOSITION: The breasts are heterogeneously dense, which may obscure small masses . FINDINGS: Occasional benign calcification. There is no evidence of suspicious mass, calcification, or architectural distortion to suggest malignancy in either breast. There has been no suspicious interv al change. IMPRESSION: 1. No mammographic evidence of malignancy. 2. Recommend routine screening mammography in one year. BI-RADS Category 2: Benign finding(s). Reviewed, dictated and finalized at location A.
== END 2023-06-28 10:45 | disposition home or self-care (01) ==
PROVIDERS: PCP Internal Medicine; Visit Provider Obstetrics & Gynecology Gynecology
DX: Z12.31 Encounter for screening mammogram for malignant neoplasm of breast (principal); M81.0 Age-related osteoporosis without current pathological fracture; Z78.0 Asymptomatic menopausal state
CPT/HCPCS: 77063; 77067; 77080

== ENCOUNTER 2023-10-31 13:10 | Emergency (ER) | payer MEDICARE, OTHER, SELFPAY ==
--- NOTE | 2023-10-31 13:23 | ED.URI ---
HPI - URI/Sore Throat General Chief Complaint: Upper Respiratory Infection Stated Complaint: Sinus Time Seen by Provider: 10/31/23 13:23 Source: patient, RN notes reviewed and old records reviewed Mode of arrival: ambulatory Limitations: no limitations History of Present Illness HPI Narrative: Patient presents to [facility] with complaints of body aches, cough, fatigue for least 3 days. She reports that she recently traveled to [place], was exposed to many people who had COVID-19. She arrives requesting a COVID test. She denies any shortness of breath. She is not any distress at this time Related Data Home Medications Medication Instructions Recorded Confirmed acetaminophen 650 mg 650 mg PO Q8H PRN Pain 01/26/22 10/31/23 tablet,extended release alprazolam 0.25 mg tablet 0.25 mg PO BID 01/26/22 10/31/23 atorvastatin 10 mg tablet 10 mg PO DAILY 01/26/22 10/31/23 levothyroxine 88 mcg tablet 88 mcg PO DAILY 01/26/22 10/31/23 metoprolol succinate 50 mg 50 mg PO DAILY 01/26/22 10/31/23 tablet,extended release 24 hr oxybutynin chloride 15 mg 15 mg PO DAILY 01/26/22 10/31/23 tablet,extended release 24 hr pantoprazole 40 mg tablet,delayed 40 mg PO QAM PRN reflux 01/26/22 10/31/23 release rivaroxaban 20 mg tablet (Xarelto) 20 mg PO QACDINNER 01/26/22 10/31/23 sertraline 25 mg tablet 25 mg PO DAILY 01/26/22 10/31/23 cholecalciferol (vitamin D3) 100 200 mcg PO HS 02/23/22 10/31/23 mcg (4,000 unit) capsule denosumab 60 mg/mL subcutaneous 60 mg subcut [id number] 02/23/22 10/31/23 syringe (Prolia) Allergies Allergy/AdvReac Type Severity Reaction Status Date / Time ciprofloxacin Allergy Severe Anaphylactic Verified 10/31/23 13:18 Shock iodine Allergy Severe Anaphylactic Verified 10/31/23 13:18 Shock Quinolones Allergy Severe Anaphylactic Verified 10/31/23 13:18 Shock aspirin AdvReac Severe Other Verified 10/31/23 13:18 Contrast Media Allergy Severe Anaphylactic Uncoded 10/31/23 13:18 Shock Review of Systems Review of Systems: All systems reviewed & are unremarkable except as noted in HPI and below Constitutional: Constitutional: Reports no additional constitutional complaints and Reports body ache(s) ENT: Reports system reviewed and no additional complaints, except as documented, Reports nasal discharge and Reports sore throat Cardiovascular: Cardiovascular: Reports no additional cardiovascular complaints Respiratory: Respiratory: Reports as per HPI and Reports no additional respiratory complaints Gastrointestinal: Gastrointestinal: Reports no additional gastrointestinal complaints Musculoskeletal: Musculoskeletal: Reports myalgias Neurologic: Reports headache(s) [facility] Past Medical History Medical History Anxiety Arthritis Atrial fib/flutter, transient Depression Diarrhea Hair loss Hearing loss HLD (hyperlipidemia) HTN (hypertension) Hypercholesterolemia Hyperthyroidism Left knee DJD Osteopenia Right knee DJD Urinary frequency Wears glasses Surgical History Surgical History H/O thyroidectomy 2012 per patient questionnaire Family History Family History Other Family history of arthritis Social History Social History Smoking status: Never smoker Alcohol intake: former Substance use: never Substance use type: does not use Living arrangements: alone Occupation/Education: retired Gender identity (if verbalized by the patient): Female Spiritual care concerns: No Exam Const: General: cooperative, no acute distress, alert and awake Orientation/consciousness: oriented to person, oriented to place and oriented to time HENMT: Head: normal to inspection Resp: Effort & Inspection: normal respiratory effort and able to speak in co
[2023-10-31 13:25] VITALS: BP 120/100; PULSE 93; RESP 12; TEMP 37.7; O2SAT 99
[2023-11-20 14:11] LABS: EDINFLUASCREEN NEGATIVE; EDINFLUBSCREEN NEGATIVE
== END 2023-10-31 13:44 | disposition home or self-care (01) ==
PROVIDERS: Emergency Provider Nurse Practitioner Family; PCP Internal Medicine
DX: U07.1 COVID-19 (principal); M19.90 Unspecified osteoarthritis, unspecified site; I48.91 Unspecified atrial fibrillation; I48.92 Unspecified atrial flutter; I10 Essential (primary) hypertension; E78.00 Pure hypercholesterolemia, unspecified; M17.0 Bilateral primary osteoarthritis of knee; M85.80 Other specified disorders of bone density and structure, unspecified site; F41.9 Anxiety disorder, unspecified; F32.A Depression, unspecified; E89.0 Postprocedural hypothyroidism
CPT/HCPCS: 87426; 87804; 99211; 99213; G0463

== ENCOUNTER 2023-11-16 23:56 | Inpatient (IN) | payer MEDICARE, OTHER, SELFPAY ==
--- NOTE | ~2023-11-16 | XR_ITS ---
EXAMINATION: XR retrograde pyelo w/stent RT DATE: 11/17/2023 12:42 INDICATION: Right ureteral stone. TECHNIQUE: 6 intraoperative fluoroscopic views of the abdomen and pelvis were obtained. I was not pre sent. Fluoroscopy time was 62 seconds. COMPARISON: CT abdomen and pelvis 11/17/2023 FINDINGS: The right-sided retrograde pyelogram demonstrates mild hydronephrosis. The final images dem onstrate a right internal ureteral stent in expected position. IMPRESSION: 1. Mild right hydronephrosis. 2. Right internal ureteral stent in expected position. Reviewed, dictated and finalized at location A.
--- NOTE | ~2023-11-16 | CT_ITS ---
EXAMINATION: CT abdomen pelvis wo con DATE: 11/17/2023 01:16 INDICATION: Right flank pain. Nausea. Hematuria. TECHNIQUE: Computed tomography (CT) of the abdomen and pelvis was performed without intravenous contr ast. Automated exposure control and iterative reconstruction technique were employed. The dose-length product was 611.68 mGy-cm. COMPARISON: CT abdomen and pelvis 01/17/2015 FINDINGS: The visualized portions of lung bases demonstrate mild atelectasis. A calcified right lung nodule is consistent with old granulomatous disease. There is a small pneumatocele in right lower lob e. No pleural effusion. Cardiomegaly is noted. No pericardial effusion. There is a small sliding hiat al hernia. The liver and gallbladder are normal. Calcifications in the spleen are consistent with old granulomatous disease. The pancreas, adrenal glands, and left kidney are normal. There is mild right hydronephrosis. There is a 2 mm stone in proximal right ureter. There are no dilated loops of bowel. The appendix is normal. There are no pathologically enlarged lymph nodes. There is no free intraperi toneal fluid. There is moderate lumbar spondylosis. There is interbody fusion at L3-L4. IMPRESSION: 1. 2 mm stone in proximal right ureter with mild right hydronephrosis. 2. Small sliding hiatal hernia. Reviewed, dictated and finalized at location A.
[2023-11-16 23:56] VITALS: BP 170/85; PULSE 67; RESP 14; TEMP 36.9; O2SAT 100
[2023-11-17] VITALS (20 sets, daily range): BP systolic 112–177; BP diastolic 56–117; PULSE 70–130; RESP 14–26; TEMP 36.4–37.7; O2SAT 95–100; BMI 30.2
[2023-11-17 00:26] LABS: Alanine Aminotransferase 20 U/L (6-35); Alkaline Phosphatase 196 U/L (38-126); Anion Gap 9 mmol/L (4-12); Aspartate Amino Transferase 31 U/L (14-36); Bilirubin,Total 0.6 mg/dL (0.2-1.3); Blood Urea Nitrogen 16 mg/dL (7-17); Calcium 10.2 mg/dL (8.4-10.2); Carbon Dioxide 24 mmol/L (22-30); Chloride 107 mmol/L (98-107); Estimated CRCL calculation 67 ml/min; Estimated Glomerular Filt Rate > 60; Glucose 126 mg/dL (65-110); Sodium 140 mmol/L (137-145)
[2023-11-17 00:31] LABS: Basophils Absolute Auto 0.1 K/mm3 (0.0-0.1); Basophils Percent Auto 0.7 % (0.2-1.2); Eosinophils Absolute Auto 0.1 K/mm3 (0-0.3); Eosinophils Percent Auto 1.1 % (0-4.4); Hematocrit 41.1 % (37.0-47.0); Hemoglobin 13.4 g/dL (12.0-15.0); Immature Granulocyte Absolute 0.02 K/mm3 (0.00-0.031); Immature Granulocyte Percent A 0.2 % (0-0.5); Lymphocytes Percent Auto 19.9 % (18.3-44.2); Mean Corpuscular HGB Conc 32.6 g/dl (32-36); Mean Corpuscular Hemoglobin 31.5 pg (26-34); Mean Corpuscular Volume 96.5 fl (80-100); Mean Platelet Volume 10.1 fl (7.4-10.4); Monocytes Absolute Auto 0.5 K/mm3 (0.1-0.6); Neutrophils Absolute Auto 6.2 K/mm3 (1.3-6.7); Neutrophils Percent Auto 72.1 % (45.5-73.1); Platelet Count Result 201 k/mm3 (150-375); Red Blood Count 4.26 M/mm3 (4.2-5.4); Red Cell Distribution Width 14.4 % (11.5-14.5); White Blood Count 8.6 K/mm3 (4.5-10.0)
[2023-11-17] MEDS: MORPHINE SULFATE (*CRX) 4 MG/ML INJ IV PUSH ×2 (00:42→02:45)
[2023-11-17] MEDS: ONDANSETRON INJ 4 MG/2 ML VIAL IV PUSH ×3 (00:43→07:34)
[2023-11-17] MEDS: SODIUM CHLORIDE 0.9% IV 1,000 ML 999 ML IV CONT ×2 (00:43→01:36)
--- NOTE | 2023-11-17 00:48 | ED.ABDPAIN ---
HPI - Abdominal Pain General Chief Complaint: Abdominal Pain <JONNA Erickson Last Filed: 11/17/23 03:12> Stated Complaint: ABD AND FLANK PAIN <JONNA Erickson Last Filed: 11/17/23 03:12> Time Seen by Provider: 11/16/23 23:59 <JONNA Erickson Last Filed: 11/17/23 03:12> Source: patient <JONNA Erickson Last Filed: 11/17/23 03:12> Mode of arrival: ambulatory <JONNA Erickson Filed: 11/17/23 03:12> Limitations: no limitations <JONNA Erickson Last Filed: 11/17/23 03:12> History of Present Illness HPI narrative: Patient is a 78-year-old female who presents the ED with report of abdominal and flank pain. Patient reports she noticed blood in her urine early this afternoon. She began having pain throughout her lower abdomen radiating around to her right lower back. She went to an urgent care this evening and was diagnosed with UTI, started on macrobid. Pain then became worse and she presented here for further evaluation. She has not taken anything for pain. patient reports nausea, denies vomiting. Denies fevers. Denies diarrhea, constipation. Denies previous history of kidney stones. <JONNA Erickson Last Filed: 11/17/23 03:12> Related Data Home Medications: Home Medications Medication Instructions Recorded Confirmed acetaminophen 650 mg 650 mg PO Q8H PRN Pain 01/26/22 10/31/23 tablet,extended release alprazolam 0.25 mg tablet 0.25 mg PO BID 01/26/22 10/31/23 atorvastatin 10 mg tablet 10 mg PO DAILY 01/26/22 10/31/23 levothyroxine 88 mcg tablet 88 mcg PO DAILY 01/26/22 10/31/23 metoprolol succinate 50 mg 50 mg PO DAILY 01/26/22 10/31/23 tablet,extended release 24 hr oxybutynin chloride 15 mg 15 mg PO DAILY 01/26/22 10/31/23 tablet,extended release 24 hr pantoprazole 40 mg tablet,delayed 40 mg PO QAM PRN reflux 01/26/22 10/31/23 release rivaroxaban 20 mg tablet (Xarelto) 20 mg PO QACDINNER 01/26/22 10/31/23 sertraline 25 mg tablet 25 mg PO DAILY 01/26/22 10/31/23 cholecalciferol (vitamin D3) 100 200 mcg PO HS 02/23/22 10/31/23 mcg (4,000 unit) capsule denosumab 60 mg/mL subcutaneous 60 mg subcut [id number] 02/23/22 10/31/23 syringe (Prolia) <Delores Solano PA-C - Last Filed: 11/17/23 03:12> Allergies/Adverse Reactions: Allergies Allergy/AdvReac Type Severity Reaction Status Date / Time ciprofloxacin Allergy Severe Anaphylactic Verified 10/31/23 13:18 Shock iodine Allergy Severe Anaphylactic Verified 10/31/23 13:18 Shock Quinolones Allergy Severe Anaphylactic Verified 10/31/23 13:18 Shock aspirin AdvReac Severe Other Verified 10/31/23 13:18 Contrast Media Allergy Severe Anaphylactic Uncoded 10/31/23 13:18 Shock <Delores Solano PA-C - Last Filed: 11/17/23 03:12> Review of Systems Review of Systems: All systems reviewed & are unremarkable except as noted in HPI. <Delores Solano PA-C - Last Filed: 11/17/23 03:12> All systems reviewed & are unremarkable except as noted in HPI and below <Delores Solano PA-C - Last Filed: 11/17/23 03:12> [facility] Past Medical History Medical History: Medical History Anxiety Arthritis Atrial fib/flutter, transient Depression Diarrhea Hair loss Hearing loss HLD (hyperlipidemia) HTN (hypertension) Hypercholesterolemia Hyperthyroidism Left knee DJD Osteopenia Right knee DJD Urinary frequency Wears glasses <Delores Solano PA-C - Last Filed: 11/17/23 03:12> Surgical History Surgical History: Surgical History H/O thyroidectomy 2013 per patient questionnaire <Delores Solano PA-C - Last Filed: 11/17/23 03:12> Family History Family History: Family History
[2023-11-17 00:59] LABS: Add Urine Microscopic? YES; Appearance Urine Cloudy (Clear); Bacteria Urine Rare /hpf; Bilirubin Urine 1+ (Negative); Blood Urine 3+ (Negative); Color Urine Dark Yellow (Yellow); Glucose Urine UA Negative (Negative); Ketones Urine Negative (Negative); Leukocyte Esterase Ur 2+ LEU/UL (Negative); Nitrate Urine Positive (Negative); Non Pathogenic Casts 0-2; Protein Urine Trace mg/dL (Negative); RBC Urine 21-50 /hpf (0-2); Specific Grav Ur 1.014 (1.001-1.035); Squamous Epithelial Cell Urine None Seen /hpf (Few); WBC Urine 21-50 /hpf (0-3); pH Urine 5.5 (5.0-9.0)
[2023-11-17] MEDS: HYDROmorphone HCL INJ (*CRX) 1 MG/ML SYR 0.5 MG IV PUSH (04:46)
--- NOTE | 2023-11-17 05:53 | ADMGEN ---
This patient, Vanessa Hong, was admitted to [facility] Surg Room 330-02. Patient/family oriented to hospital policies and general routines including ID bracelet, bed and alarms, visiting hours, pain management, procedures, bathroom and other care routines, personal items, smoking policy, room service/diet, and visiting hours. Information on how to activate the Rapid Response Team has been discussed. Patient/Family are encouraged to report perceived risks to care and to ask questions if they do not understand what they are told or what they should do.
[2023-11-17] MEDS: LACTATED RINGERS 1,000 ML 125 ML IV CONT (06:07)
--- NOTE | 2023-11-17 06:29 | WPDURCON ---
Assessment and Plan Assessment and plan (1) Right ureteral calculus: Code(s): N20.1 - Calculus of ureter Status: Acute (2) UTI (urinary tract infection): Qualifiers: Hematuria presence: with hematuria Urinary tract infection type: acute cystitis Qualified Code(s): N30.01 - Acute cystitis with hematuria Code(s): N39.0 - Urinary tract infection, site not specified Status: Acute Assessment and Plan: Cystoscopy, right ureteral stent placement and right retrograde Urology Consult Note HPI Date Seen: 11/17/23 Requesting Physician: Kim Sol DO Primary Care Provider: Kris Del Toro, Consult Narrative Narrative: Vanessa Hong is a 78-year-old female without prior urologic history and with a history urolithiasis. She she had a 2 to three-day history of intermittent right flank pain. She was 1st evaluated at a urgent care where they treated her for UTI. She later presented here with persistent and progressive pain. Imaging demonstrates a small obstructing right proximal ureteral stone in her urine does appear infected. Review of Systems Cardiovascular: Cardiovascular: Denies chest pain, Denies lightheadedness, Denies palpitations and Denies dyspnea Respiratory: Respiratory: Denies dyspnea Gastrointestinal: Gastrointestinal: Denies diarrhea, Denies nausea and Denies vomiting Genitourinary: Genitourinary: Denies hematuria and Denies dysuria Endocrine: Endocrine: Denies palpitations PMF Past Medical History Medical History Anxiety Arthritis Atrial fib/flutter, transient Depression Diarrhea Hair loss Hearing loss HLD (hyperlipidemia) HTN (hypertension) Hypercholesterolemia Hyperthyroidism Left knee DJD Osteopenia Right knee DJD Urinary frequency Wears glasses Surgical History Surgical History H/O thyroidectomy 2013 per patient questionnaire Family History Family History (Updated 11/17/23 @ 05:59 by Jana Bravo RN) Sibling Family history of arthritis Social History Social History Smoking status: Never smoker Alcohol intake: never Substance use: never Substance use type: does not use Do You Feel Safe in your Home?: Yes Lack of Transportation: No Lack of Food: Never True Current Housing: I Have Housing Concerned About Future Housing: No Difficulty Paying Gas/Electric Bills: No Difficulty Paying for Meds: No Currently Unemployed: No Education: Bachelor's Degree Difficulty w/ Childcare or Family Care: No Living arrangements: alone Occupation/Education: retired Gender identity (if verbalized by the patient): Female Spiritual care concerns: No Meds Home Medications and Allergies Home Medications Medication Instructions Recorded Confirmed Type alprazolam 0.25 mg tablet 0.25 mg PO BID 01/26/22 11/17/23 History atorvastatin 10 mg tablet 10 mg PO DAILY 01/26/22 11/17/23 History levothyroxine 88 mcg tablet 88 mcg PO DAILY 01/26/22 11/17/23 History metoprolol succinate 50 mg 50 mg PO DAILY 01/26/22 11/17/23 History tablet,extended release 24 hr oxybutynin chloride 15 mg 15 mg PO DAILY 01/26/22 11/17/23 History tablet,extended release 24 hr rivaroxaban 20 mg tablet (Xarelto) 20 mg PO QACDINNER 01/26/22 11/17/23 History sertraline 25 mg tablet 25 mg PO DAILY 01/26/22 11/17/23 History nitrofurantoin 100 mg PO BID 11/17/23 11/17/23 History monohydrate/macrocrystals 100 mg capsule (Macrobid) Allergies Allergy/AdvReac Type Severity Reaction Status Date / Time ciprofloxacin Allergy Severe Anaphylactic Verified 11/17/23 06:07 Shock iodine Allergy Severe Anaphylactic Verified 11/17/23 06:07 Shock Quinolones Allergy Severe Anaphylactic Verified 11/17/23 06:07 Shock aspir
--- NOTE | 2023-11-17 06:36 | WPDHPUPDATE1 ---
History and Physical Update Update Date/Time: 11/17/23 06:36 History and Physical has been reviewed, including an updated exam of the patient. There are NO changes in the patient's condition. Risks, benefits, and alternatives have been discussed and questions answered. Patient agrees to proceed with procedure.
--- NOTE | 2023-11-17 08:53 | PM.IMHP ---
H&P: HPI History of Present Illness Date/Time: 11/17/23 08:53 Chief Complaint: abd pain Narrative: HPI narrative: Patient is a 78-year-old female who is admitted from ED with report of abdominal and flank pain. Patient noticed blood in her urine early yesterday. She began having pain throughout her lower abdomen radiating around to her right lower back. She went to an urgent care yesterday and was diagnosed with UTI, started on macrobid. Pain then became worse and she presented here for further evaluation. She has not taken anything for pain. patient reports nausea, denies vomiting. Denies fevers. Denies diarrhea, constipation. Denies previous history of kidney stones. In ED: Stat rad CT abdomen pelvis without contrast: Obstructive 2 x 2 x 2 mm calculus noted within the right proximal ureter not noted on code and test clerk imaging with upstream mild right renal hydronephrosis with perinephric and periureteral stranding. No other calculi identified. Normal appendix. No evidence of bowel obstruction. Colonic diverticulosis. No evidence of diverticulitis. No other acute findings. Urology was consulted and pt is scheduled for Cystoscopy, right ureteral stent placement and right retrograde with Dr Nichelle STOLL Past Medical History Medical History (Updated 11/17/23 @ 15:43 by Susan Miller APRN) Anxiety Arthritis Atrial fib/flutter, transient Depression Diarrhea Hair loss Hearing loss HLD (hyperlipidemia) HTN (hypertension) Hypercholesterolemia Hyperthyroidism Left knee DJD Osteopenia Right knee DJD Urinary frequency Wears glasses Surgical History Surgical History H/O thyroidectomy 2012 per patient questionnaire Family History Family History Sibling Family history of arthritis Social History Social History Smoking status: Never smoker Alcohol intake: never Substance use: never Substance use type: does not use Do You Feel Safe in your Home?: Yes Lack of Transportation: No Lack of Food: Never True Current Housing: I Have Housing Concerned About Future Housing: No Difficulty Paying Gas/Electric Bills: No Difficulty Paying for Meds: No Currently Unemployed: No Education: Bachelor's Degree Difficulty w/ Childcare or Family Care: No Living arrangements: alone Occupation/Education: retired Gender identity (if verbalized by the patient): Female Spiritual care concerns: No Meds Home Medications and Allergies Home Medications Medication Instructions Recorded Confirmed Type alprazolam 0.25 mg tablet 0.25 mg PO BID 01/26/22 11/17/23 History atorvastatin 10 mg tablet 10 mg PO DAILY 01/26/22 11/17/23 History levothyroxine 88 mcg tablet 88 mcg PO DAILY 01/26/22 11/17/23 History metoprolol succinate 50 mg 50 mg PO DAILY 01/26/22 11/17/23 History tablet,extended release 24 hr oxybutynin chloride 15 mg 15 mg PO DAILY 01/26/22 11/17/23 History tablet,extended release 24 hr rivaroxaban 20 mg tablet (Xarelto) 20 mg PO QACDINNER 01/26/22 11/17/23 History sertraline 25 mg tablet 25 mg PO DAILY 01/26/22 11/17/23 History nitrofurantoin 100 mg PO BID 11/17/23 11/17/23 History monohydrate/macrocrystals 100 mg capsule (Macrobid) Allergies Allergy/AdvReac Type Severity Reaction Status Date / Time ciprofloxacin Allergy Severe Anaphylactic Verified 11/17/23 06:07 Shock iodine Allergy Severe Anaphylactic Verified 11/17/23 06:07 Shock Quinolones Allergy Severe Anaphylactic Verified 11/17/23 06:07 Shock aspirin AdvReac Severe Other Verified 11/17/23 06:07 Contrast Media Allergy Severe Anaphylactic Uncoded 11/17/23 06:07 Shock Vital Signs Vital Signs - 24 hr 11/16/23 23:56 11/17/23 01:36 11/17/23 04:35 Temperature 98.4 F 98.1 F Pulse Rate 67 76 86 Respiratory Rate 14 14 15
--- NOTE | 2023-11-17 11:10 | PC.NURSE ---
To OR per bed, IV left AC. Report given to Teresa ALVAREZ.
[2023-11-17] MEDS: LACTATED RINGERS 1,000 ML 30 ML IV CONT (11:45)
--- NOTE | 2023-11-17 11:55 | WPDANESEPPF ---
Anes - Initial Pre Proc Eval Procedure: Operation Date: 11/17/23 12:00 Proposed Procedures p Cystoscopy, Possible Right Retrograde Pyelogram, Right Ureteral Stent Placement - Paul Steward MD Date/Time: 11/17/23 11:55 Surgeon: Kim Sol DO Pre Op Diagnosis: Kidney stone with infection Patient Data Age: 78 Gender: F Height: 1.6 m Weight: 77.5 kg Last Vital Signs Temp 36.7 C 11/17/23 06:00 Pulse 70 11/17/23 06:00 Resp 16 11/17/23 06:00 BP 162/102 H 11/17/23 06:20 Pulse Ox 95 11/17/23 06:00 O2 Del Method Room Air 11/17/23 08:00 Allergies Allergy/AdvReac Type Severity Reaction Status Date / Time ciprofloxacin Allergy Severe Anaphylactic Verified 11/17/23 06:07 Shock iodine Allergy Severe Anaphylactic Verified 11/17/23 06:07 Shock Quinolones Allergy Severe Anaphylactic Verified 11/17/23 06:07 Shock aspirin AdvReac Severe Other Verified 11/17/23 06:07 Contrast Media Allergy Severe Anaphylactic Uncoded 11/17/23 06:07 Shock Home Medications Medication Instructions Recorded Confirmed Type alprazolam 0.25 mg tablet 0.25 mg PO BID 01/26/22 11/17/23 History atorvastatin 10 mg tablet 10 mg PO DAILY 01/26/22 11/17/23 History levothyroxine 88 mcg tablet 88 mcg PO DAILY 01/26/22 11/17/23 History metoprolol succinate 50 mg 50 mg PO DAILY 01/26/22 11/17/23 History tablet,extended release 24 hr oxybutynin chloride 15 mg 15 mg PO DAILY 01/26/22 11/17/23 History tablet,extended release 24 hr rivaroxaban 20 mg tablet (Xarelto) 20 mg PO QACDINNER 01/26/22 11/17/23 History sertraline 25 mg tablet 25 mg PO DAILY 01/26/22 11/17/23 History nitrofurantoin 100 mg PO BID 11/17/23 11/17/23 History monohydrate/macrocrystals 100 mg capsule (Macrobid) Laboratory Tests 11/17/23 11/17/23 00:10 00:40 WBC 8.6 K/mm3 (4.5-10.0) RBC 4.26 M/mm3 (4.2-5.4) Hgb 13.4 g/dL (12.0-15.0) Hct 41.1 % (37.0-47.0) MCV 96.5 fl (80-100) MCH 31.5 pg (26-34) MCHC 32.6 g/dl (32-36) RDW 14.4 % (11.5-14.5) Plt Count 201 k/mm3 (150-375) MPV 10.1 fl (7.4-10.4) Immature Gran % (Auto) 0.2 % (0-0.5) Neut % (Auto) 72.1 % (45.5-73.1) Lymph % (Auto) 19.9 % (18.3-44.2) Rankin % (Auto) 6.0 % (2.6-8.5) Eos % (Auto) 1.1 % (0-4.4) Baso % (Auto) 0.7 % (0.2-1.2) Lymph # (Auto) 1.70 K/mm3 (0.9-3.2) Rankin # (Auto) 0.5 K/mm3 (0.1-0.6) Eos # (Auto) 0.1 K/mm3 (0-0.3) Baso # (Auto) 0.1 K/mm3 (0.0-0.1) Abs Immat Gran (auto) 0.02 K/mm3 (0.00-0.031) Absolute Neuts (auto) 6.2 K/mm3 (1.3-6.7) Absolute Nucleated RBC 0.000 K/mm3 (0.0-0.012) Nucleated RBC % 0.0 % (0.0-0.2) Sodium 140 mmol/L (137-145) Potassium 4.0 mmol/L (3.4-5.0) Chloride 107 mmol/L (98-107) Carbon Dioxide 24 mmol/L (22-30) Anion Gap 9 mmol/L (4-12) BUN 16 mg/dL (7-17) Creatinine 0.60 L mg/dL (0.7-1.0) Estim Creat Clear Calc 67 ml/min Estimated GFR > 60 (59 - ) Glucose 126 H mg/dL (65-110) Calcium 10.2 mg/dL (8.4-10.2) Total Bilirubin 0.6 mg/dL (0.2-1.3) AST 31 U/L (14-36) ALT 20 U/L (6-35) Alkaline Phosphatase 196 H U/L (38-126) Total Protein 8.0 g/dL (6.3-8.2) Albumin 4.0 g/dL (3.5-5.1) Urine Color Dark yellow (Yellow) Urine Appearance Cloudy H (Clear) Urine pH 5.5 (5.0-9.0) Ur Specific [place] 1.014 (1.001-1.035) Urine Protein Trace mg/dL (Negative) Urine Glucose (UA) Negative mg/dL (Negative) Urine Ketones Negative mg/dL (Negative) Ur Blood (Man) 3+ H (Negative) Urine Nitrate Positive H (Negative) Urine Bilirubin 1+ H (Negative) Urine Urobilinogen 1.0 mg/dL (<2.0) Leukoc
--- NOTE | 2023-11-17 12:36 | W.PM.PROC2 ---
Procedure Note - Detailed Date of Procedure 11/17/23 Pre-op Diagnosis Right ureteral stone with UTI Post-op Diagnosis Same Procedure Performed Cystoscopy, right ureteroscopy with stone extraction, right retrograde pyelogram and right stent placement Surgeon Paul Steward MD Anesthesia General Description of Procedure Patient is brought to the operative suite where she is prepped draped in routine sterile fashion while in dorsal lithotomy position after the uneventful induction of a general LMA anesthetic. Cystoscopy was undertaken with a 19 F rigid cystoscope. Bladder neck and urethra endoscopically normal. Bladder mucosa is normal without hyperemia. There was no intravesical foreign body neoplasm. She has a single orthotopic ureteral orifice bilaterally. A 0.035 in glidewire was advanced into the right renal pelvis and the distal ureter is dilated with an 8 F 10 F dilator. I can feel the stone in the mid ureter. Because patient is quite stable and received antibiotic several hours ago I performed right ureteroscopy with a short tapered semi-rigid ureteral scope under low pressure irrigation. Her mid ureteral stone was extracted with a 1.9 F disposable stone basket with ease. I performed more proximal ureteroscopy with a flexible ureteral scope no additional stones were found. Retrograde pyelogram was obtained to ensure appropriate positioning of a 4.8 F variable length ureteral stent. Scopes and wires removed she was taken to the recovery room in good condition Drains No Packing No Pathology Yes Complications No immediate complications Condition Stable
[2023-11-17] MEDS: MEPERIDINE HCL INJ (*CRX) 50 MG/ML AMPUL 25 MG IV PUSH (13:40)
--- NOTE | 2023-11-17 15:00 | PC.NURSE ---
Returned from OR per bed. Report received from Mouna ALVAREZ.
--- NOTE | 2023-11-17 17:10 | WPDUROPN2 ---
Progress Note: A&P Assessment and Plan (1) Right ureteral calculus: Code(s): N20.1 - Calculus of ureter Status: Acute Assessment and Plan: Patient's ureteral stone has been extracted and a stent is placed. I would be comfortable with discharge on Monday if she remains afebrile. If discharged I would recommend Omnicef 300 mg b.i.d. for 7 days We will contact to arrange follow-up next week for stent removal Subjective Subjective Date/Time Seen: 11/17/23 17:10 Interval history: Patient is comfortable following stone extraction and stent placement Review of Systems Review of Systems: All systems reviewed & are unremarkable except as noted in HPI and below Exam Const: General: no acute distress Resp: Effort & Inspection: normal respiratory effort GI: Inspection: non-distended GI Palp: No abdominal tenderness and No Guarding due to palpation present (GI) Auscultation: normal bowel sounds Objective Data Vital Signs Vital Signs: Vital Signs - 24 hr 11/16/23 23:56 11/17/23 01:36 11/17/23 04:35 Temperature 98.4 F 98.1 F Pulse Rate 67 76 86 Respiratory Rate 14 14 15 Blood Pressure 170/85 H 161/83 H 153/93 H Pulse Oximetry 100 100 100 Oxygen Delivery Room Air Oxygen Flow Rate 11/17/23 06:00 11/17/23 06:20 11/17/23 08:00 Temperature 98.1 F Pulse Rate 70 Respiratory Rate 16 Blood Pressure 162/102 H 162/102 H Pulse Oximetry 95 Oxygen Delivery Room Air Oxygen Flow Rate 11/17/23 12:43 11/17/23 12:50 11/17/23 13:05 Temperature 97.5 F L Pulse Rate 104 H 95 112 H Respiratory Rate 21 H 20 20 Blood Pressure 112/93 H 117/74 142/104 H Pulse Oximetry 100 100 96 Oxygen Delivery Simple Face Mask Simple Face Mask Room Air Oxygen Flow Rate 8 8 11/17/23 13:20 11/17/23 13:35 11/17/23 14:05 Temperature Pulse Rate 108 H 130 H 95 Respiratory Rate 26 H 22 H 20 Blood Pressure 157/117 H 177/89 H 132/88 Pulse Oximetry 97 97 98 Oxygen Delivery Room Air Room Air Room Air Oxygen Flow Rate 11/17/23 13:50 11/17/23 14:20 11/17/23 14:35 Temperature Pulse Rate 120 H 109 H 110 H Respiratory Rate 22 H 18 16 Blood Pressure 141/85 H 126/89 130/79 Pulse Oximetry 97 98 97 Oxygen Delivery Room Air Room Air Room Air Oxygen Flow Rate 11/17/23 14:45 11/17/23 15:10 Temperature 98.6 F 97.9 F Pulse Rate 114 H 102 H Respiratory Rate 20 20 Blood Pressure 135/75 142/80 H Pulse Oximetry 95 100 Oxygen Delivery Room Air Oxygen Flow Rate Intake/Output Intake/Output: Intake & Output 11/14/23 11/15/23 11/16/23 11/17/23 23:59 23:59 23:59 23:59 Intake Total 2550 Output Total 200 Balance 2350 Meds/Results Medications: Active Medications Generic Name Dose Route Start Last Admin Trade Name Freq PRN Reason Stop Dose Admin Acetaminophen 650 mg 11/17/23 04:40 Acetaminophen 325 Mg Tablet PO Q4H PRN Mild Pain (1-3) or Fever Alprazolam 0.25 mg 11/17/23 17:00 Alprazolam (*Crx) 0.25 Mg Tablet PO BID [facility] Atorvastatin Calcium 10 mg 11/18/23 09:00 Atorvastatin 10 Mg Tablet PO DAILY [facility] Hydromorphone HCl 0.5 mg 11/17/23 04:40 Hydromorphone Hcl Inj (*Crx) 1 Mg/Ml Syr IV PUSH Q3H PRN Pain Rated 7-10 Lactated Ringer's 1,000 mls @ 125 mls/hr 11/17/23 04:40 11/17/23 06:07 Lr - Lactated Ringers Iv IV CONT 125 mls/hr .Q8H VIVIANA Administration Levothyroxine Sodium 88 mcg 11/18/23 06:30 Levothyroxine Sodium 88 Mcg Tablet PO DAILY@0630 [facility] Metoprolol Succinate 50 mg 11/18/23 09:00 Metoprolol Succinate Ext Rel 50 Mg Tabcr PO DAILY [facility] Ondansetron HCl 4 mg 11/17/23 04:40 11/17/23 07:34 Ondansetron Inj 4 Mg/2 Ml Vial IV PUSH 4 mg Q4H PRN Administration Nausea Oxybutynin Chloride 15 mg 11/18/23 09:00 Oxybutynin Chloride Xl 5 Mg Tab.Er.24 PO DAILY [facility] Sertraline HCl 25 mg 11/18/23 09:00 Sertraline Hcl 25 Mg Tablet PO DAILY VIVIANA
[2023-11-17] MEDS: ALPRAZolam (*CRX) 0.25 MG TABLET PO (17:30)
[2023-11-18] MEDS: LEVOTHYROXINE SODIUM 88 MCG TABLET PO (05:22)
[2023-11-18 05:59] VITALS: BP 103/66; PULSE 99; RESP 20; TEMP 37.2; O2SAT 96
[2023-11-18] MEDS: LACTATED RINGERS 1,000 ML 125 ML IV CONT (06:30)
[2023-11-18] MEDS: ACETAMINOPHEN 325 MG TABLET 650 MG PO (06:34)
--- NOTE | 2023-11-18 06:55 | PC.NURSE ---
Patient refusing IV fluids at this time, stating she wants to bend her arm educated patient and offered to place new IV, patient still refuses IV fluids.
--- NOTE | 2023-11-18 07:01 | PM.IMPN ---
Progress Note: A&P Assessment and Plan (1) Right ureteral calculus: Code(s): N20.1 - Calculus of ureter Status: Acute Assessment and Plan: - CT abdomen pelvis without contrast: Obstructive 2 x 2 x 2 mm calculus noted within the right proximal ureter not noted on elementary school tutor imaging with upstream mild right renal hydronephrosis with perinephric and periureteral stranding. No other calculi identified. Normal appendix. No evidence of bowel obstruction. Colonic diverticulosis. No evidence of diverticulitis. No other acute findings. - urology consult - 11/16- Cystoscopy, right ureteral stent placement and right retrograde (2) UTI (urinary tract infection): Qualifiers: Hematuria presence: with hematuria Urinary tract infection type: acute cystitis Qualified Code(s): N30.01 - Acute cystitis with hematuria Code(s): N39.0 - Urinary tract infection, site not specified Status: Acute (3) Hypercholesterolemia: Code(s): E78.00 - Pure hypercholesterolemia, unspecified Status: Acute Assessment and Plan: chronic - will resume home statin Plan chronic afib- on xarelto- will hold tonite and resume tomorrow chronic htn- will review and resume home meds as indicated chronic GERD- will review and resume home meds Subjective Date/time seen: 11/18/23 07:01 Interval history: Patient is comfortable following stone extraction and stent placement Exam Const: General: comfortable Eyes: General: appearance normal, both eyes and all related structures Resp: Effort & Inspection: normal respiratory effort Cardio: Rate: regular rate Rhythm: regular rhythm Skin: General skin exam: normal color Neuro: Speech: normal speech Psych: Mental Status: mental status grossly normal Affect: normal affect Objective Data Vital Signs Vital Signs: Vital Signs - 24 hr 11/17/23 08:00 11/17/23 12:43 11/17/23 12:50 Temperature 97.5 F L Pulse Rate 104 H 95 Respiratory Rate 21 H 20 Blood Pressure 112/93 H 117/74 Pulse Oximetry 100 100 Oxygen Delivery Room Air Simple Face Mask Simple Face Mask Oxygen Flow Rate 8 8 11/17/23 13:05 11/17/23 13:20 11/17/23 13:35 Temperature Pulse Rate 112 H 108 H 130 H Respiratory Rate 20 26 H 22 H Blood Pressure 142/104 H 157/117 H 177/89 H Pulse Oximetry 96 97 97 Oxygen Delivery Room Air Room Air Room Air Oxygen Flow Rate 11/17/23 14:05 11/17/23 13:50 11/17/23 14:20 Temperature Pulse Rate 95 120 H 109 H Respiratory Rate 20 22 H 18 Blood Pressure 132/88 141/85 H 126/89 Pulse Oximetry 98 97 98 Oxygen Delivery Room Air Room Air Room Air Oxygen Flow Rate 11/17/23 14:35 11/17/23 14:45 11/17/23 15:10 Temperature 98.6 F 97.9 F Pulse Rate 110 H 114 H 102 H Respiratory Rate 16 20 20 Blood Pressure 130/79 135/75 142/80 H Pulse Oximetry 97 95 100 Oxygen Delivery Room Air Room Air Oxygen Flow Rate 11/17/23 15:25 11/17/23 15:55 11/17/23 16:55 Temperature 99.5 F 98.1 F 97.7 F Pulse Rate 108 H 113 H 112 H Respiratory Rate 20 20 20 Blood Pressure 122/75 118/65 113/56 L Pulse Oximetry 98 97 97 Oxygen Delivery Oxygen Flow Rate 11/17/23 20:00 11/17/23 21:54 11/18/23 05:59 Temperature 99.8 F H 99.0 F Pulse Rate 78 99 Respiratory Rate 18 20 Blood Pressure 112/60 103/66 Pulse Oximetry 97 99 96 Oxygen Delivery Room Air Oxygen Flow Rate Intake/Output Intake/Output: Intake & Output 11/15/23 11/16/23 11/17/23 11/18/23 23:59 23:59 23:59 23:59 Intake Total 3770 402.1 Output Total 550 200 Balance 3220 202.1 Meds/Results Medications: Active Medications Generic Name Dose Route Start Last Admin Trade Name Freq PRN Reason Stop Dose Admin Acetaminophen 650 mg 11/17/23 04:40 11/18/23 06:34 Acetaminophen 325 Mg Tablet PO 650 mg Q4H PRN Administration Mild Pain (1-3) or Fever Alprazolam 0.25 mg 11/17/23 17:00 11/17/23 17:30 Alprazolam (*Crx) 0.25 Mg Tablet
--- NOTE | 2023-11-18 07:33 | WPDANESPN ---
Anes - Prog Note Post-Op Date/Time: 11/18/23 07:33 Cardiovascular status: normal Respiratory status: normal Airway patency: baseline Mental status: baseline Post-Op hydration status: normal Vital Signs: Last Vital Signs Temp 37.2 C 11/18/23 05:59 Pulse 99 11/18/23 05:59 Resp 20 11/18/23 05:59 BP 103/66 11/18/23 05:59 Pulse Ox 96 11/18/23 05:59 O2 Del Method Room Air 11/17/23 20:00 O2 Flow Rate 8 11/17/23 12:50 Pain Score (VAS): 2 I/O: Intake & Output 11/17/23 11/17/23 11/18/23 15:59 23:59 07:59 Intake Total 1500 220 402.1 Output Total 200 350 200 Balance 1300 -130 202.1 Laboratory Tests 11/17/23 00:10 11/17/23 00:10 Post-procedural complaints: none Patient Feedback: Patient satisfied with anesthetic care.
[2023-11-18] MEDS: ALPRAZolam (*CRX) 0.25 MG TABLET PO (10:21)
[2023-11-18] MEDS: ATORVASTATIN 10 MG TABLET PO (10:21)
[2023-11-18 10:22] VITALS: PULSE 96
[2023-11-18] MEDS: SERTRALINE HCL 25 MG TABLET PO (10:22)
[2023-11-18] MEDS: CEFDINIR 300 MG CAPSULE PO (10:22)
[2023-11-18] MEDS: oxyBUTYnin CHLORIDE XL 5 MG TAB.ER.24 15 MG PO (10:22)
[2023-11-18] MEDS: METOPROLOL SUCCINATE EXT REL 50 MG TABCR PO (10:22)
--- NOTE | 2023-11-18 11:58 | PM.DS ---
DS: Admitting Diagnosis Discharge Date 11/17 Admitting Diagnosis flamk pain, kidney stone DS: Discharge Diagnosis Discharge Diagnosis (1) Right ureteral calculus: Code(s): N20.1 - Calculus of ureter Status: Acute Assessment and Plan: - CT abdomen pelvis without contrast: Obstructive 2 x 2 x 2 mm calculus noted within the right proximal ureter not noted on [facility] imaging with upstream mild right renal hydronephrosis with perinephric and periureteral stranding. No other calculi identified. Normal appendix. No evidence of bowel obstruction. Colonic diverticulosis. No evidence of diverticulitis. No other acute findings. - urology consult - 11/16- Cystoscopy, right ureteral stent placement and right retrograde 11/17- doing well. will start omnicef and discharge with a f/u with urology (2) UTI (urinary tract infection): Qualifiers: Hematuria presence: with hematuria Urinary tract infection type: acute cystitis Qualified Code(s): N30.01 - Acute cystitis with hematuria Code(s): N39.0 - Urinary tract infection, site not specified Status: Acute (3) Hypercholesterolemia: Code(s): E78.00 - Pure hypercholesterolemia, unspecified Status: Acute Assessment and Plan: chronic - will resume home statin Plan chronic afib- on xarelto- will hold tonite and resume tomorrow chronic htn- will review and resume home meds as indicated chronic GERD- will review and resume home meds DS: Summary Hospital Course Hospital Course: HPI narrative: Patient is a 78-year-old female who is admitted from ED with report of abdominal and flank pain. Patient noticed blood in her urine early yesterday. She began having pain throughout her lower abdomen radiating around to her right lower back. She went to an urgent care yesterday and was diagnosed with UTI, started on macrobid. Pain then became worse and she presented here for further evaluation. She has not taken anything for pain. patient reports nausea, denies vomiting. Denies fevers. Denies diarrhea, constipation. Denies previous history of kidney stones. In ED: Stat rad CT abdomen pelvis without contrast: Obstructive 2 x 2 x 2 mm calculus noted within the right proximal ureter not noted on [facility] imaging with upstream mild right renal hydronephrosis with perinephric and periureteral stranding. No other calculi identified. Normal appendix. No evidence of bowel obstruction. Colonic diverticulosis. No evidence of diverticulitis. No other acute findings. Urology was consulted and pt is scheduled for Cystoscopy, right ureteral stent placement and right retrograde with Dr Steward. 11/17- pt doing well. still some discomfort with urination but improving. wants to go home if able. Status at Discharge Functional status at discharge: independent ambulation Overall status at discharge: patient is back to baseline Time Spent with Patient Time attestation: Total time spent providing and/or coordinating discharge services: Time spent: Less than 30 minutes Exam Const: General: comfortable Eyes: General: appearance normal, both eyes and all related structures Resp: Effort & Inspection: normal respiratory effort Cardio: Rate: regular rate Rhythm: regular rhythm Skin: General skin exam: normal color Neuro: Speech: normal speech Psych: Mental Status: mental status grossly normal Affect: normal affect DS: Data Data Completed and Pending Completed studies during hospitalization: retrograde pyelogram, abd pelvis ct Pending studies at discharge: Pending at discharge 11/17/23 12:27 Surgical [PTH] Routine Discharge Plan Discharge Consulting providers: Sree Harvey Discharging Clinician: Susan Miller Patient Disposition: Home, Self-Care Activity: may shower Diet: as tolerated Patient Instructions: Antibiotic Form, Rivaroxaban (By mouth) Stand Alone Forms: General Discharge Information Fol
[2023-11-18 13:03] VITALS: BP 108/79; PULSE 94; RESP 18; TEMP 37.2; O2SAT 94
== END 2023-11-18 13:45 | disposition home or self-care (01) | DRG 660 ==
LOC: ANHED 11-17 04:45 → ANH3MEDSUR 11-17 05:15
PROVIDERS: Urology; Admitting Provider Internal Medicine; Emergency Provider Physician Assistant; PCP Internal Medicine; Visit Provider Nurse Practitioner
PROC: 0TC68ZZ Extirpation of Matter from Right Ureter, Via Natural or Artificial Opening Endoscopic (ICD-10-PCS; CPT 52352; principal; 2023-11-17 12:00)
DX: N20.1 Calculus of ureter (principal); I48.20 Chronic atrial fibrillation, unspecified; N39.0 Urinary tract infection, site not specified; I10 Essential (primary) hypertension; E78.5 Hyperlipidemia, unspecified; E78.00 Pure hypercholesterolemia, unspecified; E05.90 Thyrotoxicosis, unspecified without thyrotoxic crisis or storm; M17.0 Bilateral primary osteoarthritis of knee; F32.A Depression, unspecified; F41.9 Anxiety disorder, unspecified; Z79.01 Long term (current) use of anticoagulants; Z87.442 Personal history of urinary calculi
CPT/HCPCS: 36415; 74176; 74420; 80053; 81001; 82365; 85025; 87086; 88300; 96361; 96365; 96375; 96376; 99285; A9270; C1769; C2617; G0378; J0696; J1170; J1200; J2175; J2270; J2405; J2704; J3010; J7030; J7120; Q9966

== ENCOUNTER 2024-03-14 12:30 | Outpatient (RCR) | payer MEDICARE, OTHER, SELFPAY ==
--- NOTE | 2024-02-05 11:33 | OPREHPOC ---
Outpatient Therapy Plan of Care This is a Multidisciplinary Plan of Care that may contain components documented by all disciplines (PT, OT, and ST.) PT Problem 1 PT Problem #1 Knowledge Deficit PT Goal 1 Goal / Goal Update [place] with HEP Target Visit 4 PT Problem 2 PT Problem #2 Impaired Range of Motion PT Goal 1 Goal / Goal Update Improve piotr cervical rotation to 60 degrees to improve facet glide for functional ROM Target Visit 8 PT Goal 2 Goal / Goal Update Improve piotr shoulder external rotation to 80 degrees to improve capsular mobility Target Visit 8 PT Problem 3 PT Problem #3 Impaired Strength PT Goal 1 Goal / Goal Update Improve piotr shoulder external rotation strength to 4+/5 to improve shoulder stability for ADL activity Target Visit 8 PT Goal 2 Goal / Goal Update Improve piotr shoulder flexion strength to 4/5 to improve object lifting without upper trapezius substitution Target Visit 8
--- NOTE | 2024-02-05 11:33 | PTOPEVAL1 ---
Assessment and note entered by Aric Sung, PT Evaluation Information Assessment Status Evaluation ICD-10 Condition Codes (PT) M25.511,M25.512 Onset November 2023 Subjective Information Reports that she has been having shoulder pain for about 2 months. She does not recall any kind of injury to neck or shoulders. She is getting pain all the way down her right arm but only in left shoulder. Pain is mostly with motion and she gets pain at night when rolling from side to side. She is right handed. Reported Pain Level Pain Score 8: Self Report Assessment PT Clinical Summary Patient presents with signs and symptoms consistent with bilateral rotator cuff tendonitis, shoulder OA, and cervical OA. Patient has mobility deficits in both cervical spine and shoulder and has reflected poor mobility in both. Patient will benefit from skilled therapy to address these deficits and improve mobility and reduce pain. Plan of Care Interventions Electrical Stimulation,Hot Pack/Cold Pack,Manual Therapy,Neuro Re-education,Therapeutic Activities, Therapeutic Exercise PT Services Indicated Yes Treatment Frequency and 2x/week for 8 visits Duration These treatments will address the objective and functional deficits as defined above. The patient will be advanced safely and appropriately in order for the patient to progress towards his/her prior level of function. Additional exercises will be introduced and as well as a comprehensive home exercise program upon discharge, if needed, ?to ensure carryover of functional gains achieved in the clinic. This treatment plan has been reviewed and agreement upon by the patient.
--- NOTE | 2024-03-14 13:20 | OPREHPOC ---
Outpatient Therapy Plan of Care This is a Multidisciplinary Plan of Care that may contain components documented by all disciplines (PT, OT, and ST.) PT Problem 1 PT Problem #1 Knowledge Deficit PT Goal 1 Goal / Goal Update [place] with HEP Target Visit 4 Progress Met PT Problem 2 PT Problem #2 Impaired Range of Motion PT Goal 1 Goal / Goal Update Improve piotr cervical rotation to 60 degrees to improve facet glide for functional ROM Target Visit 8 Progress Met PT Goal 2 Goal / Goal Update Improve piotr shoulder external rotation to 80 degrees to improve capsular mobility Did not meet on left Target Visit 8 Progress Partially Met PT Problem 3 PT Problem #3 Impaired Strength PT Goal 1 Goal / Goal Update Improve piotr shoulder external rotation strength to 4+/5 to improve shoulder stability for ADL activity Target Visit 8 Progress Partially Met PT Goal 2 Goal / Goal Update Improve piotr shoulder flexion strength to 4/5 to improve object lifting without upper trapezius substitution Target Visit 8 Progress Met
--- NOTE | 2024-03-14 13:20 | PTOPDC ---
Assessment and note entered by Aric Sung, PT Evaluation Information Assessment Status Discharge ICD-10 Condition Codes (PT) Pain in right shoulder M25.511,Pain in left shoulder M25.512 Onset November 2023 Subjective Information Reports that overall she is much better. Pain and reaching is better. She has not had as much pain as expected with decorating around her home for [place]. Pain really bad in her right shoulder but that is much improved. She does still occasionally have elbow pain. Reported Pain Level Pain Score 1: Self Report Assessment PT Clinical Summary Patient has met all goals for therapy at this time and is suitable for discharge to [facility]. We have made significant objective progress which has resulted in correlated subjective improvement in pain and function. Plan of Care PT Services Indicated D/C to [facility]
== END 2024-03-15 10:52 | disposition home or self-care (01) ==
LOC: ANHPT 12:30
PROVIDERS: PCP Internal Medicine; Visit Provider Internal Medicine
DX: M25.511 Pain in right shoulder (principal)
CPT/HCPCS: 97110; 97140; 97161; 97530

== ENCOUNTER 2024-09-14 11:49 | Outpatient (CLI) | payer MEDICARE, OTHER, SELFPAY ==
--- NOTE | ~2024-09-14 | MM_ITS ---
EXAMINATION: MM screening michelle BI w lisa HISTORY: Screening TECHNIQUE: Craniocaudal and mediolateral oblique 3-D tomosynthesis images were obtained and synthetic 2-D images were generated. CAD analysis was submitted and interpreted. COMPARISON: Comparison to multiple prior studies sequentially, with oldest reviewed study dated Bennie rison to multiple prior studies sequentially, with oldest reviewed study dated 12/06/2018. . BREAST PARENCHYMAL COMPOSITION: Dense: The breasts are heterogeneously dense, which may obscure small masses FINDINGS: There is no evidence of suspicious mass, calcification, or architectural distortion to sugg est malignancy in either breast. There has been no suspicious interval change. IMPRESSION: 1. No mammographic evidence of malignancy. 2. Recommend routine screening mammography in one year. BI-RADS Category 1: Negative Reviewed, dictated and finalized at location A.
--- OUTSIDE RECORDS SUMMARY | 2024-09-14 11:53 | XMS_ITS | Data Portability ---
Author Organization [place] [employer] [facility], Main Office Address [address] [place] [address] Care Team Providers Care Cloth Washer Name Role Phone CURLY DEL TORO Primary Care Provider [phone] CURLY DEL TORO Referring Provider CURLY DEL TORO Primary Care Provider Assessment Encounter Date Assessment Date Assessment LastModified by Organization Details LastModified Time 05/08/2024 05/08/2024 79-year-old patient presents today with bilateral shoulder pain that has been going since December and is now getting worse. She states she went on a cruise and when she came back she was ill and diagnosed with covid and kidney stones. She was not as active during this time and shortly after the shoulders became painful. the right is worse than the left. The pain is starting to travel down to her elbow and wrist. She states that the pain makes it difficult to do daily activities and sleep at night. She sometimes wakes up with swelling in the hand. 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 for treatment she has tried Tylenol Arthritis and topical Tylenol creams. She completed physical therapy in March but does not feel like it was helpful as she did not like the facility. She has a history of afib and cannot take NSAIDs. Review of systems per patient questionnaire Imaging: X-rays reviewed show no acute bony abnormality or fracture. She does have moderate degenerative osteoarthritic changes and joint space narrowing throughout the shoulders with inferior humeral head osteophyte formation. Physical exam: RIGHT- Tenderness with palpitation over anterior shoulder. Range of motion 140/ 30/back pocket. Pain with resisted elevation. 5/5 rotator cuff strength. Positive jobes, neer, bai. Negative tinels at elbow. No restriction in elbow ROM. Sensation intact. LEFT- No tenderness with palpitation. ROM 150/40/back pocket. No pain with resisted elevation. 5/5 rotator cuff strength. Sensation intact. We discussed that she has arthritis so treatment would be PT, tylenol, and cortisone injection. She is interested in trying more therapy at another facility. We will order that for her. She can continue with tylenol arthritis and topical creams. We discussed risks and benefits of cortisone injection and she elected to proceed with that. We can see her back in 6-8 weeks for recheck. She would like to be worked up for her right elbow at that time. [email or web address] Not available 05/08/2024 15:16:02 06/19/2024 06/19/2024 79-year-old female presents for follow-up of her bilateral shoulders and her right elbow which is a new complaint. We have been treating her conservatively for her shoulders. The left 1 feels fine. The right 1 is improving with physical therapy, especially ultrasound, but still bothers her. With regards to the right elbow, this has been bothering her for a long time, getting progressively worse. Pain is located over the lateral elbow. Worse with lifting. She has not had any treatments for this. She has tenderness palpation over the lateral epicondyle. She has pain with resisted wrist extension lateral lifting. No tenderness elsewhere around the elbow. X-rays of the elbow were reviewed, demonstrating no acute bony abnormality For her shoulders, we will continue conservative management and renew her physical therapy. With regards to her lateral epicondylitis, we will begin with a course of conservative management using a counterforce strap, she can not take anti-inflammatori es because she is on Xarelto. We discussed using topicals for the elbow as well. We also discussed cortisone injection which she wanted proceed with an tolerated well. We will see her back in 2-3 months as needed for recheck. [email or web address] Not available 06/19/2024 11:24:37 Plan of Treatment Reminders Order Date Submit Date Provider Last Modified By Organization Details Last Modified Time Details Appointments None recorded. Lab None recorded. Referral physical therapist referral - continuatio n of therapy for anand shoulder. Thanks 2024 025 [email or web address] [facility], [address], [place], [address], 19:53:41 physical therapist referral - Please schedule pt for Anand shoulder. Thanks 2024 025 [facility] [place] [facility], [address], [place], [address], 5 22:54:35 orthopedic surgeon referral - Please call patient to schedule an appointment . Thank you. 2024 025 CARLI Ortega MD, [address], [place], [address], 15:18:30 physical therapist referral - Please call patient to schedule. [address] (Outpatient Physical Therapy), [facility], [place], [address], 4 08:55:01 Procedures injection/a spiration joint/bursa (PROC) 2024 025 [email or web address] In-Office Order, Internal Use Only DO Not Attach Compendium DO Not Attach Compendium, Do Not Delete/merge, [id number] 11:16:18 injection/a spiration joint/bursa (PROC) 2024 025 [email or web address] In-Office Order, Internal Use Only DO Not Attach Compendium DO Not Attach Compendium, Do Not Delete/merge, [id number] 5 16:31:11 Surgeries None recorded. Imaging XR, elbow, 3 or more view 2024 025 [email or web address] [facility] [place], [address], [place], [address], 5 19:53:41 XR, shoulder, 2 or more view 2024 025 [email or web address] [facility] [place], [address], [place], [address], 16:31:11 Medication Orders bupivacaine HCl 0.5 % (5 mg/mL) injection solution 2024 025 [email or web address] [id number], [address] [place], [address], 12:50:42 Kenalog 10 mg/mL suspension for injection 2024 025 [email or web address] [id number], [address] [place], [address], 12:50:46 bupivacaine HCl 0.5 % (5 mg/mL) injection solution 2024 025 [email or web address] [id number], [address] [place], [address], 12:50:42 Kenalog 10 mg/mL suspension for injection 2024 025 [email or web address] Not available 12:50:46 Patient TargetsNo targets recorded. Patient InstructionsNo instructions recorded. Reason for Referral Physical Therapist Referral for Bilateral shoulder joint pain Please call patient to schedule. Referring Physician: Curly Del Toro, Internal Medicine, Encounter Date: 01/01/2024 Orthopedic Surgeon Referral for Bilateral shoulder joint pain Please call patient to schedule an appointment. Thank you. Referring Physician: Curly Del Toro, Internal Medicine, Encounter Date: 05/02/2024 Physical Therapist Referral for Bilateral shoulder joint pain Anand shoulder Please schedule pt for Anand shoulder. Thanks Referring Physician: Harrison Galeano, Orthopedic Surgery, Encounter Date: 05/08/2024 Physical Therapist Referral for Bilateral shoulder joint pain Anand shoulders continuation of therapy for anand shoulder. Thanks Referring Physician: Aarti Ortega, Orthopedic Surgery, Encounter Date: 06/19/2024 Results Created Date Observation Date Name Description Value Unit Range Abnormal Flag Note LastModifiedBy Organization Detail LastModifiedTime 05/08/19 25 XR, shoul radha, 2 or more view No observ ation record ed. [email or web address] [facility] [place] [address], [place], [address], 05/08/2024 15:12:12 06/20/19 25 XR, elbow , 3 or more view No observ ation record ed. [email or web address] [facility] [place] [address], [place], [address], 06/19/2024 10:57:33 Result Notes None recorded. Problems Name Problem SNOMED Code Status Onset Date Resolution Date Notes Provider Name and Address Organization Details Recorded Time Acid reflux 392280414 Completed 202208/26/2022 ROZ Perry, [employer] [facility] [facility] [employer] 3 07:32:48 Urticari a 204508941 Active 2022 Imelda gagnon RMTitus farley, [employer] [facility] [employer] [facility] [employer] 3 07:32:39 Neck pain 86561460 Active 2022 Curly Del Toro MD [address], [place], [address] , [employer] [facility] [employer] [facility] [employer] 3 12:47:22 Diabetes mellitus 18667993 Active 2022 Curly Del Toro MD [address], [place], [address] , [employer] [facility] [facility] [employer] 3 12:23:36 Pain of left knee joint 78057181356 4107 Active 2023 Curly Del Toro MD [address], [place], [address] , [employer] [facility] [employer] [facility] [employer] 4 12:49:53 Pre-surg viktoriya evaluati on Completed 202103/10/2022 Not Available [facility] 3 03:22:13 Hearing loss 77505510 Active 2020 Not Available [facility] 3 03:22:13 Pain of right shoulder joint 05781854676 176009 Completed 202103/10/2022 Curly Del Toro MD [address] [facility], [address], [place], [address] , [facility] 4 12:33:28 Abdomina l pain 18730902 Completed Not Available [facility] 3 03:22:13 Gastroes ophageal reflux disease 422766099 Active Not Available [facility] 3 03:22:14 Eruption 091027491 Completed Not Available [facility] 3 03:22:14 Low back pain 075984968 Active 2020 Not Available [facility] 3 03:22:14 Injury of ribs 550944415 Completed Not Available [facility] 3 03:22:14 Knee pain Completed Not Available [facility] 3 03:22:14 Depressi ve disorder 71116532 Active seeing psych Not Available [facility] 3 03:22:14 Osteoart hritis 527446296 Active Not Available [facility] 3 03:22:14 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 Not Available [facility] 3 03:22:14 Anxiety 15045197 Active Not Available [facility] 3 03:22:14 Atrial fibrilla tion 70720659 Active Not Available [facility] 3 03:22:14 Hyperlip idemia 94605669 Active 2020 Not Available [facility] 3 03:22:14 [facility]ia l hyperten wayne 83519237 Active Not Available [facility] 3 03:22:15 Osteopor osis 54705615 Active Not Available [facility] 3 03:22:15 Hypercal cemia 78179382 Active 2020 Not Available [facility] 3 03:22:15 Urinary tract infectio us disease 99378354 Completed Alice Antonio MA null, [place] [facility] 4 12:48:08 Overacti ve urinary bladder 906950209 Active 2020 Not Available [facility] 3 03:22:15 Recurren t urinary tract infectio n 079462373 Active 2023 Alice Antonio MA null, [place] [facility] [place] [facility] 4 12:47:58 Urinary tract infectio us disease 06569087 Active 2023 Alice Antonio MA null, [place] [facility] [place] [facility] 4 12:48:08 Kidney stone 41394388 Active 2023 Curly Del Toro MD [address], [place], [address] , [facility] 4 12:24:20 Hydronep hrosis due to calculus of kidney and ureter 651945180 Active 2023 Curly Del Toro MD [address], [place], [address] , [facility] 4 12:24:49 Pain of right shoulder joint 03460686786 113787 Active 2023 Curly Del Toro MD [address], [place], [address] , [facility] [place] [facility] 4 12:33:28 Bilatera l shoulder joint pain 21285512272 372730 Active 2023 Curly Del Toro MD [address], [address], [place], [address] , [place] [facility] [place] [facility] 4 12:23:15 Localize d, primary osteoart hritis of the shoulder region 507104856 Active 2024 Harrison Galeano NP [address], [place], [address] , [place] [facility] [place] [facility] 5 15:12:59 Localize d, primary osteoart hritis of the shoulder region 177418632 Active 2024 Harrison Galeano NP [address] [facility], [facility] [address], [place], [address] , [facility] [employer] 15:13:09 Pain of right elbow joint 66457803228 673700 Active 2024 Pricila Kessler, RMA null, [place] [employer] 5 10:57:04 Problem Notes Documentation Provider Name and Address Organization Details Recorded Time Orthopedic Surgeon Consult Note : [facility] [employer] [facility] [address] [facility] [address], [place] [facility] [address]NNS[place]OD, Jessica E (id #[id number], : 1945) Documents sent via fax will include the following message: This fax may contain sensitive and confidential personal health information that is being sent for the sole use of the intended recipient. Unintended recipients are directed to securely destroy any materials received. You are hereby notified that the unauthorized disclosure or other unlawful use of this fax or any personal health information is prohibited. To the extent patient information contained in this fax is subject to 42 CFR Part 2, this regulation prohibits unauthorized disclosure of these records. If you received this fax in error, please visit [email or web address] [email or web address] to notify the sender and confirm that the information will be destroyed. If you do not have internet access, please call to notify the sender and confirm that the information will be destroyed. Thank you for your attention and cooperation. [ID:[id number]] , Date: 05/08/2024RE: Ebenezer Lima MD, I would like to thank you for referring Vanessa Hong to me for consultation and evaluation of Bilateral Shoulder Pain , on 05/08/2024. I have enclosed a copy of the office assessment and plan for your records. Once again, thank you for allowing me to participate in the care of this patient. Sincerely, Electronically Signed by: HARRISON GALEANO NP Assessment/[id number]-[id number] d patient presents today with bilateral shoulder pain that has been going since December and is now getting worse. She states she went on a cruise and when she came back she was ill and diagnosed with covid and kidney stones. She was not as active during this time and shortly after the shoulders became painful. the right is worse than the left. The pain is starting to travel down to her elbow and wrist. She states that the pain makes it difficult to do daily activities and sleep at night. She sometimes wakes up with swelling in the hand. 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 for treatment she has tried Tylenol Arthritis and topical Tylenol creams. She completed physical therapy in March but does not feel like it was helpful as she did not like the facility. She has a history of afib and cannot take NSAIDs. Review of systems per patient questionnaire Imaging: X-rays reviewed show no acute bony abnormality or fracture. She does have moderate degenerative osteoarthritic changes and joint space narrowing throughout the shoulders with inferior humeral head osteophyte formation. Physical exam: RIGHT- Tenderness with palpitation over anterior shoulder. Range of motion 140/ 30/back pocket. Pain with resisted elevation. 5/5 rotator cuff strength. Positive jobes, neer, bai. Negative tinels at elbow. No restriction in elbow ROM. Sensation intact.LEFT- No tenderness with palpitation. ROM 150/40/back pocket. No pain with resisted elevation. 5/5 rotator cuff strength. Sensation intact. We discussed that she has arthritis so treatment would be PT, tylenol, and cortisone injection. She is interested in trying more therapy at another facility. We will order that for her. She can continue with tylenol arthritis and topical creams. We discussed risks and benefits of cortisone injection and she elected to proceed with that. We can see her back in 6-8 weeks for recheck. She would like to be worked up for her right elbow at that time. 1. Bilateral shoulder joint painM25.519: Pain in unspecified shoulder XR, SHOULDER, 2 OR MORE VIEW Side: BILATERAL bupivacaine HCl 0.5 % (5 mg/mL) injection solution - Take 4 mL by injection route. Quantity: (4) mL Lot #: [id number] Route: Injection Exp Date: 03/02/2025 Administered Kenalog 10 mg/mL suspension for injection - Take 1 mL by injection route. Quantity: (1) mL Lot #: [id number] Route: Injection Exp Date: 08/01/2026 Administered INJECTION/ASPIRATION JOINT/BURSA (PROC) Side: RIGHT PHYSICAL THERAPIST REFERRAL - Schedule Within: provider's discretion Note to Provider: Please schedule pt for Anand shoulder. Thanks Evaluate & Treat: Per PT Side: BILATERAL Reason for Referral: Anand shoulder # of requested visits: 12 2. Localized, primary osteoarthritis of the shoulder region- VxpcwvnkoF18.019: Primary osteoarthritis, unspecified shoulder XR, SHOULDER, 2 OR MORE VIEW Side: BILATERAL Return to Office Aarti Ortega MD for Any 5 at [facility] [place] on 06/19/2024 at 10:00 AM Curly Del Toro MD for Medicare Wellness 15 at [facility] Internal [address] on 09/03/2024 at 09:00 AM Curly Del Toro MD for Any 15 at [facility] Internal [address] on 09/03/2024 at 11:00 AM Curly Del Toro MD [address] [place] [address], [facility] [address], [address], [facility] 06/17/2024 13:13:39 Orthopedic Surgeon Consult Note : [facility] [address] [facility] [address], [place] [facility] [id number], Jessica E (id #[id number], : 1945) Documents sent via fax will include the following message: This fax may contain sensitive and confidential personal health information that is being sent for the sole use of the intended recipient. Unintended recipients are directed to securely destroy any materials received. You are hereby notified that the unauthorized disclosure or other unlawful use of this fax or any personal health information is prohibited. To the extent patient information contained in this fax is subject to 42 CFR Part 2, this regulation prohibits unauthorized disclosure of these records. If you received this fax in error, please visit [email or web address] [email or web address] to notify the sender and confirm that the information will be destroyed. If you do not have internet access, please call to notify the sender and confirm that the information will be destroyed. Thank you for your attention and cooperation. [ID:[id number]] , Date: 06/19/2024RE: Ebenezer Lima MD, I would like to thank you for referring Vanessa Hal to me for consultation and evaluation of Right elbow pain/injury Followup: Bilateral shoulder joint pain , on 06/19/2024. I have enclosed a copy of the office assessment and plan for your records. Once again, thank you for allowing me to participate in the care of this patient. Sincerely, Electronically Signed by: AARTI ORTEGA MD Assessment/[id number] d female presents for follow-up of her bilateral shoulders and her right elbow which is a new complaint. We have been treating her conservatively for her shoulders. The left 1 feels fine. The right 1 is improving with physical therapy, especially ultrasound, but still bothers her. With regards to the right elbow, this has been bothering her for a long time, getting progressively worse. Pain is located over the lateral elbow. Worse with lifting. She has not had any treatments for this. She has tenderness palpation over the lateral epicondyle. She has pain with resisted wrist extension lateral lifting. No tenderness elsewhere around the elbow. X-rays of the elbow were reviewed, demonstrating no acute bony abnormality For her shoulders, we will continue conservative management and renew her physical therapy. With regards to her lateral epicondylitis, we will begin with a course of conservative management using a counterforce strap, she can not take anti-inflammatories because she is on Xarelto. We discussed using topicals for the elbow as well. We also discussed cortisone injection which she wanted proceed with an tolerated well. We will see her back in 2-3 months as needed for recheck. 1. Bilateral shoulder joint painM25.519: Pain in unspecified shoulder PHYSICAL THERAPIST REFERRAL - Schedule Within: provider's discretion Note to Provider: continuation of therapy for anand shoulder. Thanks Evaluate & Treat: Per PT Side: BILATERAL Ultrasound therapy: yes Reason for Referral: Anand shoulders # of requested visits: 12 2. Pain of right elbow wlpksI22.521: Pain in right elbow XR, ELBOW, 3 OR MORE VIEW Side: RIGHT bupivacaine HCl 0.5 % (5 mg/mL) injection solution - Take 1 mL by injection route. Quantity: (1) mL Lot #: [id number] Route: Injection Exp Date: 03/02/2025 Administered Kenalog 10 mg/mL suspension for injection - Take 1 mL by injection route. Quantity: (1) mL Lot #: [id number] Route: Injection Exp Date: 11/01/2026 Administered INJECTION/ASPIRATION JOINT/BURSA (PROC) XR, ELBOW, 3 OR MORE VIEW Side: RIGHT Return to Office Curly Del Toro MD for Medicare Wellness 15 at [facility] Internal [facility] on 09/03/2024 at 09:00 AM Curly Del Toro MD for Any 15 at [facility] Internal [facility] [address] on 09/03/2024 at 11:00 AM Curly Del Toro MD [address] [facility], [address], [place], [address], [facility] [employer] [facility] [employer] 06/19/2024 15:57:01 Procedures Surgical History Date Name Laterality Status Provider Name and Address Organization Details Recorded Time 06/20/19 25 Ortho - Cortisone Injection completed Aarti Ortega MD [address], [place], [address], [employer] [facility] [employer] 06/19/2024 11:25:39 05/08/19 25 Ortho - Cortisone Injection completed Harrison Galeano NP [address], [place], [address], [facility] [employer] [facility] [employer] 05/08/2024 15:15:39 08/31/19 24 Medicare Wellness CPT Code, subsequent completed [facility] Funk [facility] 08/31/2023 11:56:26 11/08/19 23 Medicare Wellness CPT Code, subsequent completed Nona Taveras CMA [place] [employer] [facility] [employer] 11/07/2022 12:07:45 07/07/19 23 Medicare Wellness CPT Code, subsequent completed Princess Davies RN [facility] [employer] 07/06/2022 12:20:28 06/14/19 23 Date of Last Mammogram completed Princess Davies RN [facility] 07/06/2022 12:25:13 03/04/20 22 Date of Last Colonoscopy completed Princess Davies RN [facility] 07/06/2022 12:25:35 03/05/20 21 Most Recent Bone Density completed Not Available [facility] 06/01/2022 03:14:33 thyroidectomy completed Pricila west [facility] 05/08/2024 11:14:59 Cataract Surgery completed Pricila hodge [facility] 05/08/2024 11:15:27 Imaging Results None recorded. Procedure Notes None recorded. Medical Equipment None Reported. Allergies Allergen ID Allergen Name Allergen Category Reaction Reaction Severity Criticality Documentation Date Start Date Code Code System Note Provider Name and Address Organization Details Recorded Time 6025 Iodinated contrast media (substanc e) medicatio n Not available Not available Not available 06/01/2022 88580 2004 SNOMED Not Available [facility] 3 03:31:57 6026 Cipro medicatio n Not available Not available Not available 06/01/2022 69671 3 RxNorm Not Available [facility] 3 03:31:57 Medications Name Sig Start Date Stop Date Status Note LastModified by Organization Details LastModified Time amoxicill in 500 mg capsule active Not Available Not Available Not Available oxybutyni n chloride ER 15 mg tablet,ex tended release 24 hr TAKE 1 TABLET BY MOUTH EVERY DAY 2024 active [facility] 05/02/24 NOV 09/03/24 ok to rf Not Available Not Available Not Available cefuroxim e axetil 250 mg tablet TAKE 1 TABLET (250 MG TOTAL) BY MOUTH 2 (TWO) TIMES A DAY FOR 7 DAYS. 07/05 completed Not Available Not Available Not Available clindamyc in HCl 300 mg capsule 07/05 completed Not Available Not Available Not Available atorvasta tin 10 mg tablet TAKE 1 TABLET BY MOUTH EVERY DAY active Not Available Not Available No t Available oxybutyni n chloride ER 10 mg tablet,ex tended release 24 hr 12/26 completed Not Available Not Available Not Available azithromy misa 250 mg tablet TAKE 2 TABLETS BY MOUTH TODAY, THEN TAKE 1 TABLET DAILY FOR 4 DAYS active Not Available Not Available No t Available metoprolo l succinate ER 50 mg tablet,ex tended release 24 hr TAKE 1 TABLET BY MOUTH EVERY DAYNEE DS APPT FOR FURTHER REFILLS* * 2024 active Not Available Not Available Not Avai jasmin tolterodi ne ER 4 mg capsule,e xtended release 24 hr 08/26 completed Not Available Not Available Not Available hydrocodo ne 5 mg-acetam inophen 325 mg tablet 05/03 completed Not Available Not Available Not Available Medrol (Ravinder) 4 mg tablets in a dose pack take as directed on the package 08/26 completed Not Available Not Available Not Available bupivacai ne HCl 0.5 % (5 mg/mL) injection solution Take 1 mL by injectio n route. 09/05 completed Not Available Not Available Not Available alendrona te 70 mg tablet 07/14 completed Not Available Not Available Not Available clobetaso l 0.05 % topical cream APPLY A THIN LAYER TO THE AFFECTED AREA(S) BY TOPICAL ROUTE 2 TIMES PER DAY active Not Available Not Available No t Available clindamyc in HCl 150 mg capsule TAKE 1 CAPSULE BY MOUTH 4 TIMES A DAY UNTIL GONE 11/05 completed Not Available Not Available Not Available sulfameth oxazole 800 mg-trimet hoprim 160 mg tablet TK 1 T PO BID FOR 3 DAYS 07/14 completed Not Available Not Available Not Available tramadol 50 mg tablet Take 1 tablet every 6 hours by oral route for 5 days. active Not Available Not Available No t Available triamcino lone acetonide 0.1 % topical cream WILLY AA BID FOR 10 DAYS active Not Available Not Available No t Available ketorolac 0.5 % eye drops PLEASE SEE ATTACHED FOR DETAILED DIRECTIO NS 07/05 completed Not Available Not Available Not Available Macrobid 100 mg capsule Take 1 capsule every 12 hours by oral route for 5 days. 12/31 completed per 10/18/23 patient case / ds Not Available Not Available Not Available levothyro xine 100 mcg tablet 12/26 completed Not Available Not Available Not Available levothyro xine 88 mcg tablet TAKE 1 TABLET BY MOUTH EVERY DAY active Not Available Not Available No t Available amoxicill in 875 mg tablet TK 1 T PO BID active Not Available Not Available No t Available alprazola m 0.25 mg tablet 1 TABLET AT BEDTIME ORAL ONCE A DAY DOSE REDUCED 30 DAYS active Not Available Not Available No t Available prednisol one acetate 1 % eye drops,shaan pension INSTILL 1 DROP 3 TIMES A DAY INTO AFFECTED EYE STARTING AFTER SURGERY 07/05 completed Not Available Not Available Not Available Kenalog 10 mg/mL suspensio n for injection Take 1 mL by injectio n route. 09/05 completed [facility]: [phone] Not Available Not Available Not Available benzonata te 100 mg capsule TK 1 TO 2 CS PO Q 8 H PRN active Not Available Not Available No t Available cephalexi n 500 mg capsule TAKE 1 CAPSULE BY MOUTH EVERY 8 HOURS FOR 7 DAYS 11/05 completed Not Available Not Available Not Available pantopraz ole 40 mg tablet,de layed release TAKE 1 TABLET BY MOUTH EVERY DAY 2024 active [facility] 05/02/24 NOV 09/03/24 ok to rf Not Available Not Available Not Available tobramyci n 0.3 % eye drops PLACE 1 DROP INTO AFFECTED EYE 4 TIMES DAILY STARTING 2 DAYS BEFORE SURGERY AND CONTINUI NG FOR 1WK 07/05 completed Not Available Not Available Not Available sertralin e 25 mg tablet TAKE 1 TABLET BY MOUTH EVERY DAY FOR 90 DAYS active Not Available Not Available No t Available hydroxyzi ne HCl 25 mg tablet Take 1 tablet 3 times a day by oral route as needed. 04/13 completed Not Available Not Available Not Available cefdinir 300 mg capsule TAKE 1 CAPSULE BY MOUTH EVERY 12 HOURS 05/08 completed Not Available Not Available Not Available neomycin 3.5 mg/g-poly myxin B 10,000 unit/g-de xameth 0.1 % eye oint 03/10 completed Not Available Not Available Not Available escitalop candace 5 mg tablet TK 1 T PO QAM active Not Available Not Available No t Available ibandrona te 150 mg tablet TK 1 T PO Q MONTH 11/24 completed Not Available Not Available Not Available fluocinol one acetonide oil 0.01 % ear drops ADMINIST ER 3 DROPS INTO EACH EAR 2 (TWO) TIMES A DAY FOR 14 DAYS 07/05 completed Not Available Not Available Not Available PEG-3350 with flavor packs 420 gram oral solution 05/03 completed Not Available Not Available Not Available GaviLyte- G 236 gram-22.7 4 gram-6.74 gram-5.86 gram oral solution MIX AND DRINK UTD 07/14 completed Not Available Not Available Not Available Prolia 60 mg/mL subcutane ous syringe Inject 1 mL by subcutan eous route. 07/20 completed E 6 months Not Available Not Available Not Available Prolia [address] Gonzalez administ ers Not Available Not Available Not Available Xarelto 20 mg tablet TAKE 1 TABLET BY MOUTH EVERY DAY active Not Available Not Available No t Available Fluvirin 7462-9015 45 mcg (15 mcg x 3)/0.5 mL intramusc ular suspensio n ADM 0.5ML UTD active Not Available Not Available No t Available Fluvirin 1122-4263 45 mcg (15 mcg x 3)/0.5 mL intramusc ular suspensio n INJECT 0.5 ML INTRAMUS CULARLY DIRECTED . active Not Available Not Available No t Available Fluzone High-Dose 2014- (PF) 180 mcg/0.5 mL intramusc ular syringe active Not Available Not Available Not Available Fluzone High-Dose 9160-6465 (PF) 180 mcg/0.5 mL intramusc ular syringe ADM 0.5ML IM UTD 03/23 completed Not Available Not Available Not Available Fluzone High-Dose (PF) 180 mcg/0.5 mL intramusc ular syringe TO BE ADMINIST ERED BY PHARMACI ST FOR IMMUNIZA TION 08/11 completed Not Available Not Available Not Available Fluad Quad 7019-2338 (65yr up)(PF) 60 mcg (15 mcg x 4)/0.5mL IM syringe PHARMACY ADMINIST ERED 03/09 completed Not Available Not Available Not Available Vitals Date Recorded Body height Body mass index (BMI) Body weight Body temperature Oxygen saturation Oxygen saturation in Arterial blood by Pulse oximetry Heart rate Systolic blood pressure Diastolic blood pressure Provider Name and Address Organization Details Last Updated DateTime 5 161.29 cm 29.8 kg/m2 74726.3 g 98.4 [degF] 94 % 94 % 72 /min 132 mm[Hg] 76 mm[Hg] Sayda [place] [employer] [facility] [employer] [facility] 5 12:05:50 Date Recorded Body height Body mass index (BMI) Body weight Provider Name and Address Organization Details Last Updated DateTime 05/08/2024 161.29 cm 29.8 kg/m2 91937.3 g Pricila Checo [facility] [employer] [facility] [employer] [facility] 05/08/2024 11:12:30 Date Recorded Body height Body mass index (BMI) Body weight Provider Name and Address Organization Details Last Updated DateTime 06/19/2024 161.29 cm 29.8 kg/m2 11753.3 g Pricila Checo [facility] [employer] [facility] [employer] [facility] 06/19/2024 10:56:09 Date Recorded Body height Body mass index (BMI) Body weight Heart rate Oxygen saturation Oxygen saturation in Arterial blood by Pulse oximetry Body temperature Systolic blood pressure Diastolic blood pressure Provider Name and Address Organization Details Last Updated DateTime 4 161.29 cm 29.1 kg/m2 69159.9 3 g 89 /min 97 % 97 % 97.1 [degF] 132 mm[Hg] 90 mm[Hg] Imelda Joiner ana Titus [employer] [facility] [employer] [facility] 4 12:01:36 Date Recorded Body height Body mass index (BMI) Body weight Body temperature Heart rate Oxygen saturation Oxygen saturation in Arterial blood by Pulse oximetry Systolic blood pressure Diastolic blood pressure Provider Name and Address Organization Details Last Updated DateTime 4 161.29 cm 28.8 kg/m2 66115.7 4 g 97.4 [degF] 62 /min 97 % 97 % 114 mm[Hg] 72 mm[Hg] Imelda oJiner ana Titus [employer] [facility] [employer] [facility] 12:06:40 Social History Question Answer Notes LastModified by Organization Details LastModified Time Tobacco Smoking Status Never Smoker Not Available [facility] 06/01/2022 02:59:43 Do You Have An Advance Directive? Yes MIGRATION.[id number] [id number] Information not available 06/01/2022 Are You Blind Or Do You Have Difficulty Seeing? No MIGRATION.0301 [id number] Information not available 06/01/2022 What Is Your Level Of Caffeine Consumption? Moderate MIGRATION.0301 [id number] Information not available 06/01/2022 In The 14 Days Before Symptom Onset, Have You Had Close Contact With A Laboratory-conf irmed COVID-19 While That Case Was Ill? No MIGRATION.030 [id number] Information not available 06/01/2022 In The 14 Days Before Symptom Onset, Have You Had Close Contact With A Person Who Is Under Investigation For COVID-19 While That Person Was Ill? No MIGRATION.0301 [id number] Information not available 06/01/2022 Are You Deaf Or Do You Have Serious Difficulty Hearing? No MIGRATION.0301 [id number] Information not available 06/01/2022 What Type Of Diet Are You Following? REGULAR MIGRATION.030 [id number] Information not available 06/01/2022 What Is The Highest Grade Or Level Of School You Have Completed Or The Highest Degree You Have Received? [id number] MIGRATION.030 018799 Information not available 06/01/2022 Have There Been Any Changes To Your Family Or Social Situation? No MIGRATION.0301 [id number] Information not available 06/01/2022 What Is The Fluoride Status Of Your Home? Unknown MIGRATION.0301 [id number] Information not available 06/01/2022 Are There Any Guns Present In Your Home? No MIGRATION.0301 [id number] Information not available 06/01/2022 Where Do You Live? SingleLevelHouse MIGRATION.030 [id number] Information not available 06/01/2022 Presence Of Domestic Violence No [email or web address] Information not available 07/06/2022 Are You Able To Care For Yourself? Yes [email or web address] Information not available 07/06/2022 Are You Blind Or Do Yo Have Difficulty Seeing? No Information not available 07/06/2022 Are You Deaf Or Do You Have Serious Difficulty Hearing? Yes Bilateral Hearing Aids [email or web address] Information not available 07/06/2022 General Stress Level? Moderate [email or web address] Information not available 07/06/2022 Live Alone Of With Others? Alone Information not available 07/06/2022 Do You Have A Medical Power Of Egg Buyer? Yes MIGRATION.0301 [id number] Information not available 06/01/2022 What Was The Date Of Your Most Recent Tobacco Screening? 05/08/2024 [email or web address] Information not available 05/08/2024 Do You Have Any Pets? No MIGRATION.0301 242419 Information not available 06/01/2022 What Is Your Relationship Status? MIGRATION.0301 [id number] Information not available 06/01/2022 Do You Use Your Seat Belt Or Car Seat Routinely? Yes MIGRATION.0301 247587 Information not available 06/01/2022 Do You Have Smoke And Carbon Monoxide Detectors In Your Home? Yes MIGRATION.0301 [id number] Information not available 06/01/2022 Are You Passively Exposed To Smoke? No MIGRATION.0301 970264 Information not available 06/01/2022 Are There Any Smokers In Your House? No MIGRATION.0301 [id number] Information not available 06/01/2022 Do You Use Sunscreen Routinely? Yes MIGRATION.0301 576113 Information not available 06/01/2022 Have You Recently Traveled Abroad? No MIGRATION.0301 615975 Information not available 06/01/2022 Do You Have Difficulty Walking Or Climbing Stairs? Yes [email or web address] Information not available 08/31/2023 Do You Have Any Dietary Restrictions? No MIGRATION.0301 294686 Information not available 06/01/2022 Sex: Unknown Functional Status Question Answer Note LastModified by Organizat ion Details LastModified Time Do you use any illicit or recreational drugs? No MIGRATION.[id number] 026 Information not available 06/01/2022 Do you or have you ever used any other forms of tobacco or nicotine? No MIGRATION.[id number] 026 Information not available 06/01/2022 What is your level of alcohol consumption? None MIGRATION.[id number] 026 Information not available 06/01/2022 Do you have transportation difficulties? No MIGRATION.[id number] 026 Information not available 06/01/2022 Are you able to walk? YESWOREST MIGRATION.[id number] 026 Information not available 06/01/2022 Do you have difficulty doing errands alone? No MIGRATION.[id number] 026 Information not available 06/01/2022 Are you able to care for yourself? Yes MIGRATION.2560181 026 Information not available 06/01/2022 What is your occupation? RETIRED MIGRATION.[id number] 026 Information not available 06/01/2022 Do you have difficulty dressing or bathing? No MIGRATION.9285103 026 Information not available 06/01/2022 What is your exercise level? Occasional MIGRATION.[id number] 026 Information not available 06/01/2022 Mental Status Question Answer Note LastModified by Organizat ion Details LastModified Time Do you feel stressed (tense, restless, nervous, or anxious, or unable to sleep at night)? [id number] MIGRATION.[id number] 26 Information not available 06/01/2022 Do you have difficulty concentrating, remembering or making decisions? No MIGRATION.[id number] 26 Information not available 06/01/2022 Family History Relationship Description Onset Age of this Age Resolved Age Notes LastModified by Organization Details LastModified Time Father No current problems or disability [email or web address] Not available 05/08 11:14:34 Mother No current problems or disability [email or web address] Not available 05/08 11:14:34 Medical History Condition Response ARTHRITIS Y OSTEOPOROSIS Y URINARY/BLADDER/KIDNEY PROBLEMS Y USE OF BLOOD THINNERS Y HYPERTENSION Y Gynecological History Statement/Question Response Date of Last Mammogram 02/10/2021 Date of Last Colonoscopy 03/04/2022 Date of Last Mammogram 06/13/2022 Most Recent Bone Density 03/05/2021 Obstetrics History GPAL:G 0 P 0 0 0 0 Immunizations Vaccine Type Date Status Note Provider Nam e and Address Organization Details Recorded Time COVID-19, mRNA, LNP-S, PF, 30 mcg/0.3 mL dose 2 completed Not Available [facility] 06/01/2022 03:31:26 Influenza, split virus, trivalent, preservative 0 completed Not Available [employer] 06/01/2022 03:31:27 Influenza, high-dose, trivalent, PF 3 completed Not Available [facility] 06/01/2022 03:31:27 COVID-19, mRNA, LNP-S, PF, 30 mcg/0.3 mL dose 1 completed Not Available [employer] 06/01/2022 03:31:27 COVID-19, mRNA, LNP-S, PF, 30 mcg/0.3 mL dose 1 completed Not Available [facility] 06/01/2022 03:31:27 Influenza, split virus, quadrivalent, preservative 9 completed Not Available [facility] 06/01/2022 03:31:27 influenza, unspecified formulation 8 completed Not Available [facility] 06/01/2022 03:31:27 Influenza, high-dose, quadrivalent, PF 1 completed Not Available [facility] 06/01/2022 03:31:27 Influenza, split virus, quadrivalent, preservative 6 completed Not Available [facility] 06/01/2022 03:31:27 influenza, intradermal, quadrivalent, preservative free 7 completed Not Available [facility] 06/01/2022 03:31:27 Influenza, high-dose, trivalent, PF 4 completed ROZ [place], [place] [facility] 01/02/2024 13:51:12 Past Encounters Encounter ID Performer Location Encounter Start Date Encounter Closed Date Diagnosis/Indication Diagnosis SNOMED-CT Code Diagnosis ICD10 Code Diagnosis Note [id number] Curly Del Toro MD [facility]ren[facility] [address] [place] [address]. [place] [address] 07/06/2020 00:00:00 07/06/2020 10:50:39 [id number] MD KEVIN [facility] [address] [facility] [place] [address] 11/05/2020 00:00:00 11/05/2020 13:05:45 [id number] MD KEVIN [facility] [address] [place] [address]. [place] [address] 03/04/2021 00:00:00 03/04/2021 17:40:45 [id number] MD KEVIN [facility] Internal [facility] [address] [facility] [place] [address] 05/28/2021 00:00:00 05/28/2021 12:43:58 [id number] MD KEVIN [facility] Internal Med [facility] [address] [facility] [place] [address] 07/05/2021 00:00:00 07/05/2021 11:47:56 [id number] Curly Del Toro MD [facility] Internal Med [address] [place] [address] 11/05/2021 00:00:00 11/05/2021 11:35:00 [id number] Curly Del Toro MD [facility] Internal Med [address] [facility] [place] [address] 03/10/2022 00:00:00 03/10/2022 15:12:12 [id number] Curly Del Toro MD [facility] Internal Med [facility] [address] [facility] [place] [address] 07/06/2022 11:43:10 07/06/2022 12:20:16 Essential hypertension 92279800 I10 under control Hyperlipidemia 05117645 E78.5 under control Atrial fibrillation 4943 6004 I48.91 HR under control, On Xarelto Hypothyroidism 30232063 E03.9 TSH being checked at [facility] hageal reflux disease 278514091 K21.9 Stable with meds Osteoarthritis 526291912 M19.90 tylenol prn Osteoporosis 26924221 M8 1.0 on prolia Depressive disorder 3548 9007 F32.9 stable with meds Anxiety 37954342 F41.9 On Xanex , gets regularly from her psych Overactive urinary bladder 398297994 N32.81 better with meds Hearing loss 06216997 H9 1.93 Has hearing aids Low back pain 105512868 M54.50 had MRI 2018, seen pain management , Hypercalcemia 53772557 E 83.52 avoid calcium , check labs Adult heal th examination 759641682 Z00.00 Colonoscop y- 03/04/2022 (in chart), polyp and hemorrhoid sDr Eaton- 03/2021Madesiree mogram- 06/23Pneumo vax- >5yrs agoPrevnar 13- NEVERFLU- 01/2022 ([facility] )COVID- pt states that she had both injections - does not have dates amd booster Urticaria 080216783 L50. 9 Screening for disorder 317788439 Z13.9 [id number] Curly Del Toro MD [facility] Internal Med [address] [place] [address] 11/07/2022 12:03:44 11/07/2022 12:50:45 Essential hypertension 03006419 I10 under control Hyperlipidemia 78545119 E78.5 under control Atrial fibrillation 4943 6004 I48.91 HR under control, On Xarelto Hypothyroidism 01676929 E03.9 TSH being checked at [facility] hageal reflux disease 976818374 K21.9 Stable with meds Osteoarthritis 331499147 M19.90 tylenol prn Osteoporosis 77557086 M8 1.0 on prolia Depressive disorder 3548 9007 F32.9 stable with meds Anxiety 55301062 F41.9 On Xanex , gets regularly from her psych Overactive urinary bladder 560636676 N32.81 better with meds Hearing loss 79590604 H9 1.93 Has hearing aids Low back pain 728943130 M54.50 had MRI 2018, seen pain management , Hypercalcemia 54779344 E 83.52 avoid calcium , Adult heal th examination 581582532 Z00.00 Colonoscop y- 03/04/2022 (in chart), polyp and hemorrhoid s, Dr Eaton- 03/2021Mam mogram- 06/23Pneumo vax- >5yrs agoPrevnar 13- NEVERFLU- 01/2022 ([facility] )COVID- pt states that she had both injections - does not have dates amd booster Neck pain 66104418 M54.2 try PT for a month [id number] Curly Del Toro MD [facility] Internal Med [address] [place] [address] 03/13/2023 11:46:22 03/13/2023 12:33:03 Essential hypertension 95274682 I10 always good but high today, watch and recheck in a month Hyperlipidemia 53627119 E78.5 under control Atrial fibrillation 4943 6004 I48.91 HR under control, On Xarelto Hypothyroidism 74223101 E03.9 TSH being checked at [facility] hageal reflux disease 903416891 K21.9 Stable with meds Osteoarthritis 713889050 M19.90 tylenol prn Osteoporosis 88665885 M8 1.0 on prolia Depressive disorder 3548 9007 F32.9 stable with meds Anxiety 44066605 F41.9 On Xanex , gets regularly from her psych Overactive urinary bladder 219612987 N32.81 better with meds Hearing loss 59159104 H9 1.93 Has hearing aids Low back pain 467078867 M54.50 had MRI 2017, seen pain management , Hypercalcemia 82337621 E 83.52 avoid calcium , Adult heal th examination 444492461 Z00.00 Colonoscop y- 03/04/2022 (in chart), polyp and hemorrhoid s, Dr RiceA- 03/2021Mam mogram- 06/23Pneumo vax- >5yrs agoPrevnar 13- [facility]FLU- [facility]COVID- pt states that she had both injections - does not have dates amd booster [id number] Curly Del Toro MD [facility] Internal Med [address] [place] [address] 04/13/2023 11:58:56 04/13/2023 13:09:43 Essential hypertension 02558208 I10 bp has improved, no new meds needed [id number] Curly Del Toro MD [facility] Internal Med [address] [place] [address] 05/15/2023 12:02:21 05/15/2023 13:04:18 Essential hypertension 28120362 I10 bp is under control Pain of le ft knee joint 8527788855 14132 M25.562 keep taking tylenol arthritis, take voltaren gel [id number] Curly Del Toro MD [facility] Internal Med [address] [place] [address] 08/31/2023 11:09:13 08/31/2023 12:00:04 Essential hypertension 60428087 I10 under control Hyperlipidemia 18046890 E78.5 under control Atrial fibrillation 4943 6004 I48.91 in sinus, Hypothyroidism 19320061 E03.9 labs by endo Gastroesop hageal reflux disease 735119569 K21.9 Stable with meds Osteoarthritis 479536732 M19.90 tylenol prn Osteoporosis 27666283 M8 1.0 gyne managing it Depressive disorder 3548 9007 F32.9 stable with meds Anxiety 01834907 F41.9 On Xanex , gets regularly from her psych Overactive urinary bladder 402643299 N32.81 better with meds Hearing loss 43080040 H9 1.93 Has hearing aids Low back pain 173050902 M54.50 advise dto f/u with pain management , Hypercalcemia 85004712 E 83.52 avoid calcium , check labs Adult heal th examination 792368392 Z00.00 Colonoscop y- 03/04/2022 (in chart), polyp and hemorrhoid s, Dr DiazDEXA- 06/28/23Ma mmogram- 4P neumovax- >5yrs agoPrevnar 13[facility]FLU[facility] pt states that she had both injections - does not have dates and booster Long-term drug therapy 880233571 Z79.899 Screening for disorder 281702798 Z13.9 [id number] Curly Del Toro MD [facility] Internal Med [address] [facility] [place] [address] 12/21/2023 11:47:40 12/21/2023 12:32:24 Kidney stone 43837435 N20.0 improved, has been sent for analysisad vise dto drink more water Hydronephr osis due to calculus of kidney and ureter 628492179 N13.2 improved with stent Pain of ri ght shoulder joint 6444244181 9512835 M25.511 exercises discussed [id number] Curly Del Toro MD [facility] Internal Med [address] [facility] [place] [address] 01/01/2024 11:23:11 01/01/2024 12:53:56 Essential hypertension 47098249 I10 under control Hyperlipidemia 79461870 E78.5 under control Atrial fibrillation 4943 6004 I48.91 in sinus, Hypothyroidism 38703361 E03.9 labs by endo Gastroesop hageal reflux disease 394705844 K21.9 Stable with meds Osteoarthritis 906937665 M19.90 tylenol prn Osteoporosis 15431142 M8 1.0 gyne managing it Depressive disorder 3548 9007 F32.9 stable with meds Anxiety 57261111 F41.9 On Xanex , gets regularly from her psych Overactive urinary bladder 976858495 N32.81 better with meds Hearing loss 06488474 H9 1.93 Has hearing aids Low back pain 500205506 M54.50 advise dto f/u with pain management , Hypercalcemia 04468602 E 83.52 avoid calcium , check labs Adult th examination 980613874 Z00.00 Colonoscop y- 03/04/2022 (in chart), polyp and hemorrhoid s, Dr DiazDEXA- 06/28/23Ma mmogram- 4P neumovax- >5yrs agoPrevnar 13[facility]FLU- [facility]- pt states that she had both injections - does not have dates and booster Administra tion of influenza vaccine 21269318 Z23 Bilateral shoulder joint pain [id number] 5569889 M25.511 Hydronephr osis due to calculus of kidney and ureter 749584895 N13.2 improved with stent Kidney stone 65086699 N2 0.0 improved, [id number] Curly Del Toro MD [facility] Internal Med [address] [place] [address] 05/02/2024 11:58:28 05/02/2024 12:32:04 Essential hypertension 72638943 I10 under control Hyperlipidemia 24020004 E78.5 under control Atrial fibrillation 4943 6004 I48.91 in sinus, Hypothyroidism 80152768 E03.9 labs by endo Gastroesop hageal reflux disease 139283695 K21.9 Stable with meds Osteoarthritis 521551739 M19.90 tylenol prn, avoid NSAIDS Osteoporosis 90106862 M8 1.0 on prolia Depressive disorder 3548 9007 F32.9 stable with meds Anxiety 73534801 F41.9 On Xanex , gets regularly from her psych Overactive urinary bladder 512044580 N32.81 better with meds Hearing loss 40929407 H9 1.93 Has hearing aids Low back pain 472130543 M54.50 advise dto f/u with pain management , Hypercalcemia 70061723 E 83.52 avoid calcium , Adult heal th examination 217859309 Z00.00 Colonoscop y- 03/04/2022 (in chart), polyp and hemorrhoid s, Dr Eaton- 06/28/23Ma mmogram- 06/28/2023 neumovax- >5yrs agoPrevnar 13- NEVERFLU- 2022- [facility]- pt states that she had both injections - does not have dates and booster Bilateral shoulder joint pain [id number] 5078599 M25.511 Hydronephr osis due to calculus of kidney and ureter 552357395 N13.2 improved with stent Kidney stone 22204672 N2 0.0 improved, [id number] Aarti Ortega MD [facility] [place] [address] [place] [address] 05/08/2024 10:33:24 05/08/2024 12:16:14 Bilateral shoulder joint pain 1433289842 6031257 M25.519 Localized, primary osteoarthritis of the shoulder region 521213876 M19.263 [id number] Aarti Ortega MD [facility] [place] [address] [place] [address] 06/19/2024 10:53:53 06/19/2024 11:22:42 Bilateral shoulder joint pain 7394740745 2301253 M25.519 Pain of ri ght elbow joint 0185832854 9897711 M25.521 Health Concerns Section Related Observation LastModified by Organization Detai ls LastModified Time None Recorded Concern Status LastModified by Organization Details LastModified Time None Recorded Advance Directives Directive Y: Payers Insurance Date Sequence Insurance Name Policy Number Policy Gomez Covered Member ID Gomez Member ID Guarantor Name 06/17/2024 [facility] Vanessa BECERRA OF [facility] Vanessa Hong 09/01/2024 1 [place] Vanessa Hong [id number] Vanessa Hong 09/02/2024 2 [employer] (MEDICARE SUPPLEMENT) PLAN F Vanessa Zeb Hal [id number] Vanessa Zeb Hal Notes Date Note Type Note Provider Name and Address Organization Details Recorded Time 12/21/2023 text/html Pt is here today for a hospital follow up, record reviewed and discussed.She went to [place] for right back side painCT- Abd/pelvis was done [id number] Calculus was seen. Had mild hydronephrosis.Cyst oscopy was done with right ureter stent placement. Discharged with ABX and has follow up with urology, had stent removed.Since being home she has been feeling much better. urine is clear, no more back pain. Right arm is some what painful on movements, no injury Curly Del Toro MD [address] [facility], [facility] [address], [place], [address], [facility] [employer] 12/21/2023 12:33:49 01/01/2024 text/html Doing fine, compliant to medications, no side affects, here for follow up.PT IS FASTING HEARING LOSS, using hearing aids Osteoarthritis- neck pain, low back, knee pain, shoulder pain and sometimes finds it hard to even get out of the car. She has been taking Tylenol arthritis but has not been helping much. HTN- on meds and under controlMeds- Metoprolol ER 50 mg qdHypothyroidism- used to see (Dr. Rios) , now another endoMeds- Levothyroxine 88 mcg qdA fib- HR under control, seeing cardiology, on xarelto, no symptoms, dr Hogan ,Meds- Xarelto 20 mg qdGERD-- symptoms under control with meds prnMeds- Pantoprazole 40 mg qd prnHyperlipidemia- labs neededMeds- Atorvastatin 10 mg qdOsteoporosis- Prolia shot every 6 monthsMeds- Prolia inj - done by Dr. Gonzalez but will no longer be able to get them there.Depression /Anxiety- better with meds, 2020, Symptoms are under control. seeing Dr Healy- Sertraline 25 mg qd, Alprazolam 0.25 mg bidOveractive bladder- on meds, symptoms are under control, was on oxybutynin in the pastMeds- Tolterodine ER 4mg qdBack pain - off and on, seen pain management in the pastDid see pain management was ordered to do physical Therapy ([id number]) went on vacation got COVID, and now has kidney pain Hypercalcemia- has stopped taking calcium, was 10.5 (03/13/2023) Hospital f/uPt is here today for a hospital follow up, record reviewed and discussed.She went to [place] for right back side painCT- Abd/pelvis was done [id number] Calculus was seen. Had mild hydronephrosis.Cyst oscopy was done with right ureter stent placement. Discharged with ABX and has follow up with urology, had stent removed.Since being home she has been feeling much better. urine is clear, no more back pain. Right arm is some what painful on movements, no injury Curly Del Toro MD [address] [facility], [facility] [address], [place], [address], [facility] [employer] 01/01/2024 15:48:53 05/02/2024 text/html Doing fine, compliant to medications, no side affects, here for follow up. Pt went to physical therapy but still experiencing pain in both the shoulders, right side more than left,PT IS FASTING (MEDICARE) HEARING LOSS, using hearing aids Osteoarthritis- neck pain, low back, knee pain, shoulder pain and sometimes finds it hard to even get out of the car. She has been taking Tylenol arthritis but has not been helping much. HTN- on meds and under controlMeds- Metoprolol ER 50 mg qdHypothyroidism- seeing endoMeds- Levothyroxine 88 mcg qdA fib- HR under control, seeing cardiology, on xarelto, no symptoms, dr Hogan ,Meds- Xarelto 20 mg qdGERD-- symptoms under control with meds prnMeds- Pantoprazole 40 mg qd prnHyperlipidemia- under controlMeds- Atorvastatin 10 mg qdOsteoporosis- Prolia shot every 6 monthsMeds- Prolia inj - Depression /Anxiety- better with meds, 2020, Symptoms are under control. seeing Dr Healy- Sertraline 25 mg qd, Alprazolam 0.25 mg bidOveractive bladder- on meds, symptoms are under control, was on oxybutynin in the pastMeds- Tolterodine ER 4mg qdBack pain - off and on, seen pain management in the past Hypercalcemia- has stopped taking calcium, was 10.5 (03/13/2023) Curly Del Toro MD [address] [place] [address], [place], [address], [facility] 05/02/2024 12:28:42 OBGyn Episode No OBEpisode recorded.
--- OUTSIDE RECORDS SUMMARY | 2024-09-14 11:53 | XMS_ITS ---
Author Organization [facility] Address [address] [facility] [address] [facility] [address] [place] [address] Care Team Providers Care Director Of Litigation Name Role Phone Kris Del Toro MD Primary Care Provider Unavail able Jose Ramon Suh Unavailable [phone] REASON FOR VISIT due to weather; already snowing in their place Social History Sex Assigned At : Social History Observation Description Sex Assigned At Female Encounters Encounter Location Date Provider Diagnosis [facility] [employer] [place] [id number] [facility] [address] [facility] [address] [place] [address] 05/15/2024 Jose Ramon Suh Plan Of Treatment Next Appt Details Provider Name:Jose Ramon Suh , 09/25/2024 10:00:00 AM, [address], [facility] [address], [place], [address], Progress Notes * RASHMI SNEEDDOB:[birth year] (79 yo F)Acc No.[id number]:05/15/2024 Patient: Mehdi HEAVEN RASHMI Provider: Darren SUH MD :1945 A ge:79 Y S ex:Female Date:05/15/2024 Address:[address] [place] [id number] Pcp:Kris Del Toro MD Subjective: * Chief Complaints: * 1 . Due to weather; already snowing in their place. * Active Problem List F33.42 Major depressive dis order, recurrent, in full remission Onset Date:04/08/2024Modified On:10/09/2023 Status:confirmed F41.1 Generalized anxiety disorder Onset Date:07/10/2023Modified On:10/09/2023 Status:confirmed I48.91 Unspecified atrial f ibrillation Onset Date:07/10/2023Modified On:10/09/2023 Status:confirmed G31.84 MCI (mild cognitive impairment) Modified On:10/09/2023 Status:confirmed I48.20 Chronic atrial fibri llation Onset Date:01/19/2017Modified On:05/29/2024 Status:confirmedClinical Status:Active I10 Essential (primary) hypertension Modified On:05/29/2024 Status:confirmed E78.5 Hyperlipidemia, unsp ecified Onset Date:07/06/2020Modified On:05/29/2024 Status:confirmed F41.1 RUSH (generalized anx iety disorder) Modified On:05/29/2024 Status:confirmed * Medical History: Objective: * Vitals: Assessment: Plan: * Treatment: * Billing Information: * Visit Code: * Procedure Codes: * Electronic signature of Kam Suh MD on 09/14/2024 at 11:53 AM CDT Sign off status: Pending * Provider: Darren SUH MD Date: 0 05/15/2024 Generated for Marco Antonio hanley/Sarina/eTransmitting on: 0 09/14/2024 11:53 AM CDT
--- OUTSIDE RECORDS SUMMARY | 2024-09-14 11:54 | XMS_ITS | Clinical Summary ---
Author Organization [facility] Address [address] [place] [address] Care Team Providers Care Inspector Fibrous Wallboard Name Role Phone Kris Del Toro MD Primary Care Provider [phone] Allergies Active Allergy Reactions Criticality Noted Date Comments Aspirin Unknown 07/10/2023 Ciprofloxacin Swelling Medium 08/15/2012 Iodinated Contrast Media Swelling Medium 08/15/2012 Iodine Unknown 07/10/[address] (PROTONIX) 40 mg EC tablet take 1 tablet (40MG) by oral route every day 0 3 Active ALPRAZolam (XANAX) 0.25 mg tablet take 1 tablet (0.25MG) by oral route every day as needed 0 3 Active metoprolol XL (TOPROL-XL) 50 mg 24 hr tablet take 1 tablet (50MG) by oral route every day 0 3 Active atorvastatin (LIPITOR) 10 mg tablet take 1 tablet (10MG) by oral route every day 0 3 Active sertraline (ZOLOFT) 25 mg tablet TK 1 T PO QAM 5 7 Active denosumab (PROLIA SUBQ) Prolia Active cholecalciferol (VITAMIN D-3) 2000 unit capsule Take 2 capsules (4,000 Units total) by mouth daily Active acetaminophen (TYLENOL) 500 mg tablet Take 1 tablet (500 mg total) by mouth every 6 (six) hours as needed for pain Active oxyBUTYnin XL (DITROPAN XL) 15 mg 24 hr tablet Take 1 tablet (15 mg total) by mouth daily 4 Active levothyroxine (SYNTHROID) 88 mcg tabletIndications:P ost-surgical hypothyroidism Take 1 tablet (88 mcg total) by mouth daily 90 tablet 3 5 Active Xarelto 20 mg tablet TAKE 1 TABLET BY MOUTH EVERY DAY 30 tablet 11 5 Active Active Problems Problem Noted Date Diagnosed Date Chronic pansinusitis 06/06/2021 Chronic eczematous otitis externa of both ears 0 06/06/2021 Sensorineural hearing loss (SNHL) of both ears 0 06/06/2021 Epistaxis 06/06/2021 Post-surgical hypothyroidism 09/25/2017 Assessment & Plan (04/15/2024 10:59 AM [employer]): Chronic, unknown status Patient currently on levothyroxine 88 mcg oral daily Recheck thyroid function test today and further plans based on it Follow up in one year Chronic atrial fibrillation 01/19/2017 Encounters Date Type Department Care Team Description 07/11/2024 9:00 AM CDT Office Visit [facility] [address] [facility] [address] [place] [address] Dariusz Quiroz MD Chronic atrial fibrillation (HCC) (Primary Dx) from Last 3 Months Immunizations Immunization Administration Dates Next Due Pfizer SARS-CoV-2 Monovalent Vaccination (12+ Yrs) PURPLE 06/13/2020,05/21/2020 Surgical History Surgery Date Site/Laterality Comments KIDNEY STONE SURGERY Medical History Medical History Date Comments Hypertension Hypertension Hx Other Medical Arrhythmias A. Fib Hx Other Medical Hyperthyroidism , Thyroid Nodules Adiposity Obesity Hx Other Medical h/o colonic diann yps s/p removal without bleeding Anxiety and depression GERD (gastroesophageal reflux disease) Thyroid disease Atrial fibrillation (HCC) Kidney stone 12/2023 [facility] Social History Tobacco Use Types Packs/Day Years Used Date Smoking Tobacco: Never Smokeless Tobacco: Never Tobacco Cessation:Counseling Given: Not Answered Alcohol Use Standard Drinks/Week Comments No 0 (1 standard drink = 0.6 oz pur e alcohol) Comments Unknown Sex and Gender Information Value Date Recorded Sex Assigned at Not on file Legal Sex Female 2:48 AM [employer] Gender Identity Not on file Sexual Orientation Not on file Obstetrics History Last Filed Vital Signs Vital Sign Reading Time Taken Comments Blood Pressure 120/80 07/11/2024 9:17 AM CDT Pulse 69 07/11/2024 9:17 AM CDT Temperature 36.7 C (98.1 F) 08/23/2012 8:00 AM CDT Respiratory Rate 16 04/15/2024 10:49 AM [employer] Oxygen Saturation 99% 07/11/2024 9:17 AM CDT Inhaled Oxygen Concentration - - Weight 78.6 kg (173 lb 3.2 oz) 07/11/2024 9:17 A M CDT Height 165.1 cm (5' 5) 07/11/2024 9:17 AM CDT Body Mass Index 28.82 07/11/2024 9:17 AM CDT Plan of Treatment Health Maintenance Due Date Last Done Comments Depression Screening 1945 Fall Risk Assessment 1945 Hepatitis C Screening 1945 Osteoporosis Screening-Bone Density Scan 1945 DTaP/Tdap/Td Vaccine (1 - Tdap) 1958 Hepatitis B Screening 1965 Pneumococcal vaccine 65+ (1 of 2 - PCV) 1966 Zoster Vaccine (1 of 2) 1997 Well Visit 65+ 01/06/2012 Covid-19 Vaccine (4 - 2023-2 5 season) 2023 04/30/2021, 06/13/2020, 05/21/2020 Influenza Vaccine Completed 01/02/2024, , 01/31/2019, Additional history exists Insurance [employer] MED[employer] MEDIC[employer] Care Teams Inspector Fibrous Wallboard Relationship Specialty Start Date End Date Kris Del Toro MD PCP - General 07/04/16
--- OUTSIDE RECORDS SUMMARY | 2024-09-14 11:54 | XMS_ITS | Patient Health Record ---
Author Organization [facility] [employer] Address [address] [place] [address] Care Team Providers Care Staff Trainer Name Role Phone Kris Del Toro MD Primary Care Provider Unavail able Jose Ramon Curran Unavailable [phone] Allergies Allergen (clinical drug ingredient) Drug/Non Drug Allergy documented on EMR Reaction Allergy Type Onset Date Status aspirin Aspirin Unknown Drug Allergy 07/10/2023 Active ciprofloxacin Cipro Unknown Drug Allergy 07/10/2023 Ac tive Iodine Unknown Drug Allergy 07/10/2023 Active Results Component Value Reference Range Notes UDT Reviewed date:10/09/2023 11:23:01 AM Interpretation: Performing Lab: Notes/Report: THC N 0 - 50 ng/ml Cocaine N 0 - 300 ng/ml Amphetamine N 0 - 1000 ng/ml Buprenorphine (BUP) N 0 - 10 ng/ml Secobarbital (Bar) N 0 - 300 ng/ml Oxazepam (BZO) P 0 - 300 ng/ml 0-[id number]-8,1-rmiflmkt-2,3-diphenylpyrrolidine (ZACKARY P) N 0 - 300 ng/ml Methamphetamine (MET) N 0 - 1000 ng/ml Methylenedioxymethamphetamine (MDMA) N 0 - 500 ng/ml Morphine (MOP 300/[id number]) N 0 - 300 ng/ml Methadone (MTD) N 0 - 300 ng/ml Phencyclidine (PCP) N 0 - 25 ng/ml Reason For Referral No Information Medications Medication SIG (Take, Route, Frequency, Duration) Notes Start Date End Date Status ALPRAZolam 0.25 MG 1 tablet at bedtime Oral once a day for 30 days 04/22/2024 Active oxyBUTYnin Chloride ER 15 MG TAKE 1 TABL ET BY MOUTH EVERY DAY Oral for 90 Days Active Levothyroxine Sodium 88 MCG TAKE 1 TABLE T BY MOUTH EVERY DAY Oral for 90 Days Active Atorvastatin Calcium 10 MG TAKE 1 TABLET BY MOUTH EVERY DAY Oral for 90 Days Active ALPRAZolam 0.25 MG 1 tablet at bedtime Oral once a day for 30 days dose reduced 05/29/2024 Active Xarelto 20 MG TAKE 1 TABLET BY VALERIE TH EVERY DAY Oral for 30 Days Active Metoprolol Succinate ER 50 MG TAKE 1 TABLET BY MOUTH EVERY DAY Oral for 90 Days Active Sertraline HCl 25 MG 1 tablet Oral Once a day for 90 days Active Social History Tobacco Use: Social History Observation Description Date Details (start date - stop date) Never Smoker NA - NA Sex Assigned At : Social History Observation Description Sex Assigned At Female Tobacco Control (Standard) Question Answer Notes Tobacco use: Nonsmoker AUDIT-C (Standard) Question Answer Notes Did you have a drink containing alcohol in the p ast year? No Points 0 Interpretation Negative Problems Problem Type SNOMED Code ICD Code Onset Dates Problem Status W/U Status Risk Notes Problem Hyperlipidemia (20653319) Hyperlipidemia, unspecified (E78.5) 07/07/19 21 Active confirmed Problem Recurrent major depression in full remission (18490230) Major depressive disorder, recurrent, in full remission (F33.42) 07/10/19 24 Active confirmed Problem Generalized anxiety disorder (00138536) Generalized anxiety disorder (F41.1) 07/10/19 24 Active confirmed Problem Essential hypertension (02175018) Essential (primary) hypertension (I10) Active confirmed Problem Atrial fibrillation (47390226) Unspecified atrial fibrillation (I48.91) 07/10/19 24 Active confirmed Problem Generalized anxiety disorder (08981699) RUSH (generalized anxiety disorder) (F41.1) Active confirmed Problem [id number] MCI (mild cognitive impairment) (G31.84) Active confirmed Problem Chronic atrial fibrillation (861614391) Chronic atrial fibrillation (I48.20) 01/20/20 17 Active confirmed Vital Signs Heart Rate 67 /min 05/29/2024 Blood pressure diastolic 88 mm Hg 05/29/2024 Height-cm 160.02 cm 05/29/2024 Weight-kg 79.38 kg 05/29/2024 Height 63.00 in 05/29/2024 Blood pressure systolic 138 mm Hg 05/29/2024 Weight 175 lbs 05/29/2024 BMI 31 kg/m2 05/29/2024 Encounters Encounter Location Date Provider Diagnosis [address] [address] 10/09/2023 Jose Ramon Bina Major depressive disorder, recurrent, in full remission F33.42 ; Generalized anxiety disorder F41.1 ; Unspecified atrial fibrillation I48.91 and MCI (mild cognitive impairment) G31.[address] [address] 11/16/2023 Jose Ramon Bina Major depressive disorder, recurrent, in full remission F33.42 ; Generalized anxiety disorder F41.1 ; Unspecified atrial fibrillation I48.91 and MCI (mild cognitive impairment) G31.[address] [address] 01/16/2024 Jose Ramon Bina MCI (mild cognitive impairment) G31.[address] [address] 02/12/2024 Jose Ramon Bina Major depressive disorder, recurrent, in full remission F33.42 ; Generalized anxiety disorder F41.1 ; Unspecified atrial fibrillation I48.91 and MCI (mild cognitive impairment) G31.[address] [address] 05/29/2024 Jose Ramon Bina Major depressive disorder, recurrent, in full remission F33.42 ; Generalized anxiety disorder F41.1 ; Chronic atrial fibrillation I48.20 ; Essential (primary) hypertension I10 ; Hyperlipidemia, unspecified E78.5 ; MCI (mild cognitive impairment) G31.84 and RUSH (generalized anxiety disorder) F41.[address] [address] 12/06/2023 Jose Ramon Bina Generalized anxiety disorder F41.1 Assessments Encounter Date Diagnosis (ICD Code) Assessment Notes Treatment Notes Treatment Clinical Notes Section Notes 10/09/2023 Major depressive disorder, recurrent, in full remission (ICD-10 - F33.42) Anxiety - Assessment: Patient reports increased anxiety due to her sister's illness and living situation. She is currently taking sertraline 25 mg daily and Xanax 0.25 mg twice daily for anxiety and depression. - Plan: a. Continue sertraline 25 mg daily and Xanax 0.25 mg twice daily. b. Encourage the patient to seek support from friends or family members to help cope with her sister's situation. c. Schedule a follow-up appointment in two months to reassess anxiety levels and medication effectiveness. Depression - Assessment: Patient is experiencing feelings of loneliness and isolation after the loss of her and anticipates being alone after her sister's passing. She is currently taking sertraline 25 mg daily for depression and anxiety. - Plan: a. Continue sertraline 25 mg daily. b. Encourage the patient to engage in social activities and consider joining a support group for individuals experiencing grief and loss. c. Monitor depressive symptoms during the follow-up appointment in two months. Memory Concerns - Assessment: Patient reports some difficulty with word recall and memory. - Plan: a. Schedule a memory test (e.g., [place] Cognitive Assessment) after the patient returns from her vacation in two months. b. Encourage the patient to engage in mentally stimulating activities to help maintain cognitive function. c. Reassess memory concerns during the follow-up appointment in two months. Medication Refill - Assessment: Patient requires a refill of her sertraline and Xanax prescriptions before her trip to [place]. - Plan: a. Send prescription refills for sertraline 25 mg daily and Xanax 0.25 mg twice daily to [facility] in [place]. b. Instruct the patient to rock picker her medication refills before her trip. Follow-up Appointment - Plan: a. Schedule a follow-up appointment in two months to reassess anxiety, depression, and memory concerns. b. Perform the memory test during the follow-up appointment. c. Review the effectiveness of the patient's current medications and make any necessary adjustments. 05/29/2024 Major depressive disorder, recurrent, in full remission (ICD-10 - F33.42) 05/29/2024 Generalized anxiety disorder (ICD-10 - F41.1) 11/16/2023 Major depressive disorder, recurrent, in full remission (ICD-10 - F33.42) Lumbar Pain - Assessment: Patient reports chronic lumbar pain for several years, with recent exacerbation lasting more than a month. Currently using Tylenol for pain management and attending physical therapy, but with limited improvement. Patient had an MRI in 2018 showing lumbar issues, which may need to be updated as the previous one is considered outdated. Patient reports using a regular walker at home due to pain. - Plan: Upcoming appointment with supervisor paint roller covers to discuss further treatment options, including possible injections. Consider discussing with primary care physician about obtaining a walker with wheels and a seat for improved mobility. Orthorexia - Assessment: Patient reports a history of orthorexia, which may contribute to anxiety and overall well-being. - Plan: Encourage patient to continue working with their healthcare team to address this issue. Anxiety - Assessment: Patient reports increased anxiety due to lumbar pain and recent travel-related stressors, including lost luggage. Currently taking Xanax 0.25 mg twice a day for anxiety management. - Plan: Continue Xanax at the current dosage and frequency. Depression - Assessment: Patient's depression scale score is low, indicating minimal depressive symptoms. - Plan: Continue to monitor for any changes in mood or depressive symptoms during follow-up appointments. Follow-up - Plan: Schedule a follow-up appointment in three months to assess the patient's progress and make any necessary adjustments to the treatment plan. Send prescriptions for Xanax to [facility] in [place] as discussed during the visit. 02/12/2024 Major depressive disorder, recurrent, in full remission (ICD-10 - F33.42) Mild Cognitive Impairment - Assessment: Patient's memory testing results indicate mild cognitive impairment with issues in symbol recognition and executive functioning. Patient scored 21 on the SLUMS test, also suggesting mild cognitive impairment. Patient is in the 40th to 49th percentile for memory compared to others her age. - Plan: - Monitor memory and consider repeating the test in six months. - Consider SLUMS testing again in the future. Depression and Anxiety - Assessment: Patient reports occasional issues with mood and anxiety, particularly when assisting her sister. Currently on sertraline and Xanax. Patient expresses a desire to reduce Xanax use. - Plan: - Continue sertraline 25 mg once daily in the morning. - Reduce Xanax from 0.25 mg twice daily to 0.25 mg once daily at bedtime, at the patient's own pace. - Discussed potential for Wellbutrin (bupropion) in the future as an alternative that may help with memory and attention. - Reassess in three months or sooner if anxiety worsens. Arthritis and Lower Back Pain - Assessment: Patient reports worsening arthritis and lower back pain since returning from [place] in November, affecting her neck, shoulder, arm, and hand. - Plan: - Continue physical therapy, which started on February 04. Hearing Loss - Assessment: Patient wears hearing aids and reports no issues with them. - Plan: - No changes needed at this time. Follow-up - Plan: - Schedule a follow-up appointment in three months or sooner if the patient's anxiety worsens. 12/06/2023 Generalized anxiety disorder (ICD-10 - F41.1) 05/29/2024 Chronic atrial fibrillation (ICD-10 - I48.20) 02/12/2024 Generalized anxiety disorder (ICD-10 - F41.1) Mild Cognitive Impairment - Assessment: Patient's memory testing results indicate mild cognitive impairment with issues in symbol recognition and executive functioning. Patient scored 21 on the SLUMS test, also suggesting mild cognitive impairment. Patient is in the 40th to 49th percentile for memory compared to others her age. - Plan: - Monitor memory and consider repeating the test in six months. - Consider SLUMS testing again in the future. Depression and Anxiety - Assessment: Patient reports occasional issues with mood and anxiety, particularly when assisting her sister. Currently on sertraline and Xanax. Patient expresses a desire to reduce Xanax use. - Plan: - Continue sertraline 25 mg once daily in the morning. - Reduce Xanax from 0.25 mg twice daily to 0.25 mg once daily at bedtime, at the patient's own pace. - Discussed potential for Wellbutrin (bupropion) in the future as an alternative that may help with memory and attention. - Reassess in three months or sooner if anxiety worsens. Arthritis and Lower Back Pain - Assessment: Patient reports worsening arthritis and lower back pain since returning from [place] in November, affecting her neck, shoulder, arm, and hand. - Plan: - Continue physical therapy, which started on February 04. Hearing Loss - Assessment: Patient wears hearing aids and reports no issues with them. - Plan: - No changes needed at this time. Follow-up - Plan: - Schedule a follow-up appointment in three months or sooner if the patient's anxiety worsens. 11/16/2023 Generalized anxiety disorder (ICD-10 - F41.1) Lumbar Pain - Assessment: Patient reports chronic lumbar pain for several years, with recent exacerbation lasting more than a month. Currently using Tylenol for pain management and attending physical therapy, but with limited improvement. Patient had an MRI in 2018 showing lumbar issues, which may need to be updated as the previous one is considered outdated. Patient reports using a regular walker at home due to pain. - Plan: Upcoming appointment with supervisor paint roller covers to discuss further treatment options, including possible injections. Consider discussing with primary care physician about obtaining a walker with wheels and a seat for improved mobility. Orthorexia - Assessment: Patient reports a history of orthorexia, which may contribute to anxiety and overall well-being. - Plan: Encourage patient to continue working with their healthcare team to address this issue. Anxiety - Assessment: Patient reports increased anxiety due to lumbar pain and recent travel-related stressors, including lost luggage. Currently taking Xanax 0.25 mg twice a day for anxiety management. - Plan: Continue Xanax at the current dosage and frequency. Depression - Assessment: Patient's depression scale score is low, indicating minimal depressive symptoms. - Plan: Continue to monitor for any changes in mood or depressive symptoms during follow-up appointments. Follow-up - Plan: Schedule a follow-up appointment in three months to assess the patient's progress and make any necessary adjustments to the treatment plan. Send prescriptions for Xanax to [facility] in [place] as discussed during the visit. 10/09/2023 Generalized anxiety disorder (ICD-10 - F41.1) Anxiety - Assessment: Patient reports increased anxiety due to her sister's illness and living situation. She is currently taking sertraline 25 mg daily and Xanax 0.25 mg twice daily for anxiety and depression. - Plan: a. Continue sertraline 25 mg daily and Xanax 0.25 mg twice daily. b. Encourage the patient to seek support from friends or family members to help cope with her sister's situation. c. Schedule a follow-up appointment in two months to reassess anxiety levels and medication effectiveness. Depression - Assessment: Patient is experiencing feelings of loneliness and isolation after the loss of her and anticipates being alone after her sister's passing. She is currently taking sertraline 25 mg daily for depression and anxiety. - Plan: a. Continue sertraline 25 mg daily. b. Encourage the patient to engage in social activities and consider joining a support group for individuals experiencing grief and loss. c. Monitor depressive symptoms during the follow-up appointment in two months. Memory Concerns - Assessment: Patient reports some difficulty with word recall and memory. - Plan: a. Schedule a memory test (e.g., [place] Cognitive Assessment) after the patient returns from her vacation in two months. b. Encourage the patient to engage in mentally stimulating activities to help maintain cognitive function. c. Reassess memory concerns during the follow-up appointment in two months. Medication Refill - Assessment: Patient requires a refill of her sertraline and Xanax prescriptions before her trip to [place]. - Plan: a. Send prescription refills for sertraline 25 mg daily and Xanax 0.25 mg twice daily to [facility] in [place]. b. Instruct the patient to rock picker her medication refills before her trip. Follow-up Appointment - Plan: a. Schedule a follow-up appointment in two months to reassess anxiety, depression, and memory concerns. b. Perform the memory test during the follow-up appointment. c. Review the effectiveness of the patient's current medications and make any necessary adjustments. 10/09/2023 Unspecified atrial fibrillation (ICD-10 - I48.91) Anxiety - Assessment: Patient reports increased anxiety due to her sister's illness and living situation. She is currently taking sertraline 25 mg daily and Xanax 0.25 mg twice daily for anxiety and depression. - Plan: a. Continue sertraline 25 mg daily and Xanax 0.25 mg twice daily. b. Encourage the patient to seek support from friends or family members to help cope with her sister's situation. c. Schedule a follow-up appointment in two months to reassess anxiety levels and medication effectiveness. Depression - Assessment: Patient is experiencing feelings of loneliness and isolation after the loss of her and anticipates being alone after her sister's passing. She is currently taking sertraline 25 mg daily for depression and anxiety. - Plan: a. Continue sertraline 25 mg daily. b. Encourage the patient to engage in social activities and consider joining a support group for individuals experiencing grief and loss. c. Monitor depressive symptoms during the follow-up appointment in two months. Memory Concerns - Assessment: Patient reports some difficulty with word recall and memory. - Plan: a. Schedule a memory test (e.g., [place] Cognitive Assessment) after the patient returns from her vacation in two months. b. Encourage the patient to engage in mentally stimulating activities to help maintain cognitive function. c. Reassess memory concerns during the follow-up appointment in two months. Medication Refill - Assessment: Patient requires a refill of her sertraline and Xanax prescriptions before her trip to [place]. - Plan: a. Send prescription refills for sertraline 25 mg daily and Xanax 0.25 mg twice daily to [facility] in [place]. b. Instruct the patient to rock picker her medication refills before her trip. Follow-up Appointment - Plan: a. Schedule a follow-up appointment in two months to reassess anxiety, depression, and memory concerns. b. Perform the memory test during the follow-up appointment. c. Review the effectiveness of the patient's current medications and make any necessary adjustments. 11/16/2023 Unspecified atrial fibrillation (ICD-10 - I48.91) Lumbar Pain - Assessment: Patient reports chronic lumbar pain for several years, with recent exacerbation lasting more than a month. Currently using Tylenol for pain management and attending physical therapy, but with limited improvement. Patient had an MRI in 2018 showing lumbar issues, which may need to be updated as the previous one is considered outdated. Patient reports using a regular walker at home due to pain. - Plan: Upcoming appointment with supervisor paint roller covers to discuss further treatment options, including possible injections. Consider discussing with primary care physician about obtaining a walker with wheels and a seat for improved mobility. Orthorexia - Assessment: Patient reports a history of orthorexia, which may contribute to anxiety and overall well-being. - Plan: Encourage patient to continue working with their healthcare team to address this issue. Anxiety - Assessment: Patient reports increased anxiety due to lumbar pain and recent travel-related stressors, including lost luggage. Currently taking Xanax 0.25 mg twice a day for anxiety management. - Plan: Continue Xanax at the current dosage and frequency. Depression - Assessment: Patient's depression scale score is low, indicating minimal depressive symptoms. - Plan: Continue to monitor for any changes in mood or depressive symptoms during follow-up appointments. Follow-up - Plan: Schedule a follow-up appointment in three months to assess the patient's progress and make any necessary adjustments to the treatment plan. Send prescriptions for Xanax to [facility] in [place] as discussed during the visit. 05/29/2024 Essential (primary) hypertension (ICD-10 - I10) 02/12/2024 Unspecified atrial fibrillation (ICD-10 - I48.91) Mild Cognitive Impairment - Assessment: Patient's memory testing results indicate mild cognitive impairment with issues in symbol recognition and executive functioning. Patient scored 21 on the SLUMS test, also suggesting mild cognitive impairment. Patient is in the 40th to 49th percentile for memory compared to others her age. - Plan: - Monitor memory and consider repeating the test in six months. - Consider SLUMS testing again in the future. Depression and Anxiety - Assessment: Patient reports occasional issues with mood and anxiety, particularly when assisting her sister. Currently on sertraline and Xanax. Patient expresses a desire to reduce Xanax use. - Plan: - Continue sertraline 25 mg once daily in the morning. - Reduce Xanax from 0.25 mg twice daily to 0.25 mg once daily at bedtime, at the patient's own pace. - Discussed potential for Wellbutrin (bupropion) in the future as an alternative that may help with memory and attention. - Reassess in three months or sooner if anxiety worsens. Arthritis and Lower Back Pain - Assessment: Patient reports worsening arthritis and lower back pain since returning from [place] in November, affecting her neck, shoulder, arm, and hand. - Plan: - Continue physical therapy, which started on February 04. Hearing Loss - Assessment: Patient wears hearing aids and reports no issues with them. - Plan: - No changes needed at this time. Follow-up - Plan: - Schedule a follow-up appointment in three months or sooner if the patient's anxiety worsens. 02/12/2024 MCI (mild cognitive impairment) (ICD-10 - G31.84) Mild Cognitive Impairment - Assessment: Patient's memory testing results indicate mild cognitive impairment with issues in symbol recognition and executive functioning. Patient scored 21 on the SLUMS test, also suggesting mild cognitive impairment. Patient is in the 40th to 49th percentile for memory compared to others her age. - Plan: - Monitor memory and consider repeating the test in six months. - Consider SLUMS testing again in the future. Depression and Anxiety - Assessment: Patient reports occasional issues with mood and anxiety, particularly when assisting her sister. Currently on sertraline and Xanax. Patient expresses a desire to reduce Xanax use. - Plan: - Continue sertraline 25 mg once daily in the morning. - Reduce Xanax from 0.25 mg twice daily to 0.25 mg once daily at bedtime, at the patient's own pace. - Discussed potential for Wellbutrin (bupropion) in the future as an alternative that may help with memory and attention. - Reassess in three months or sooner if anxiety worsens. Arthritis and Lower Back Pain - Assessment: Patient reports worsening arthritis and lower back pain since returning from [place] in November, affecting her neck, shoulder, arm, and hand. - Plan: - Continue physical therapy, which started on February 04. Hearing Loss - Assessment: Patient wears hearing aids and reports no issues with them. - Plan: - No changes needed at this time. Follow-up - Plan: - Schedule a follow-up appointment in three months or sooner if the patient's anxiety worsens. 01/16/2024 MCI (mild cognitive impairment) (ICD-10 - G31.84) 11/16/2023 MCI (mild cognitive impairment) (ICD-10 - G31.84) Lumbar Pain - Assessment: Patient reports chronic lumbar pain for several years, with recent exacerbation lasting more than a month. Currently using Tylenol for pain management and attending physical therapy, but with limited improvement. Patient had an MRI in 2018 showing lumbar issues, which may need to be updated as the previous one is considered outdated. Patient reports using a regular walker at home due to pain. - Plan: Upcoming appointment with supervisor paint roller covers to discuss further treatment options, including possible injections. Consider discussing with primary care physician about obtaining a walker with wheels and a seat for improved mobility. Orthorexia - Assessment: Patient reports a history of orthorexia, which may contribute to anxiety and overall well-being. - Plan: Encourage patient to continue working with their healthcare team to address this issue. Anxiety - Assessment: Patient reports increased anxiety due to lumbar pain and recent travel-related stressors, including lost luggage. Currently taking Xanax 0.25 mg twice a day for anxiety management. - Plan: Continue Xanax at the current dosage and frequency. Depression - Assessment: Patient's depression scale score is low, indicating minimal depressive symptoms. - Plan: Continue to monitor for any changes in mood or depressive symptoms during follow-up appointments. Follow-up - Plan: Schedule a follow-up appointment in three months to assess the patient's progress and make any necessary adjustments to the treatment plan. Send prescriptions for Xanax to [facility] in [place] as discussed during the visit. 10/09/2023 MCI (mild cognitive impairment) (ICD-10 - G31.84) Anxiety - Assessment: Patient reports increased anxiety due to her sister's illness and living situation. She is currently taking sertraline 25 mg daily and Xanax 0.25 mg twice daily for anxiety and depression. - Plan: a. Continue sertraline 25 mg daily and Xanax 0.25 mg twice daily. b. Encourage the patient to seek support from friends or family members to help cope with her sister's situation. c. Schedule a follow-up appointment in two months to reassess anxiety levels and medication effectiveness. Depression - Assessment: Patient is experiencing feelings of loneliness and isolation after the loss of her and anticipates being alone after her sister's passing. She is currently taking sertraline 25 mg daily for depression and anxiety. - Plan: a. Continue sertraline 25 mg daily. b. Encourage the patient to engage in social activities and consider joining a support group for individuals experiencing grief and loss. c. Monitor depressive symptoms during the follow-up appointment in two months. Memory Concerns - Assessment: Patient reports some difficulty with word recall and memory. - Plan: a. Schedule a memory test (e.g., [place] Cognitive Assessment) after the patient returns from her vacation in two months. b. Encourage the patient to engage in mentally stimulating activities to help maintain cognitive function. c. Reassess memory concerns during the follow-up appointment in two months. Medication Refill - Assessment: Patient requires a refill of her sertraline and Xanax prescriptions before her trip to [place]. - Plan: a. Send prescription refills for sertraline 25 mg daily and Xanax 0.25 mg twice daily to [facility] in [place]. b. Instruct the patient to rock picker her medication refills before her trip. Follow-up Appointment - Plan: a. Schedule a follow-up appointment in two months to reassess anxiety, depression, and memory concerns. b. Perform the memory test during the follow-up appointment. c. Review the effectiveness of the patient's current medications and make any necessary adjustments. 05/29/2024 Hyperlipidemia, unspecified (ICD-10 - E78.5) 05/29/2024 MCI (mild cognitive impairment) (ICD-10 - G31.84) 05/29/2024 RUSH (generalized anxiety disorder) (ICD-10 - F41.1) 11/16/2023 Other referral to the local chapter or national office of the Alzheimer's Association (8-277-036-858 0; http://www.alz .org), the Alzheimer's Disease Education and Referral Center (ADELA) (3-043-372-870 0; http://www.leandro .nih.gov/Alzhe imers/), Lumbar Pain - Assessment: Patient reports chronic lumbar pain for several years, with recent exacerbation lasting more than a month. Currently using Tylenol for pain management and attending physical therapy, but with limited improvement. Patient had an MRI in 2018 showing lumbar issues, which may need to be updated as the previous one is considered outdated. Patient reports using a regular walker at home due to pain. - Plan: Upcoming appointment with supervisor paint roller covers to discuss further treatment options, including possible injections. Consider discussing with primary care physician about obtaining a walker with wheels and a seat for improved mobility. Orthorexia - Assessment: Patient reports a history of orthorexia, which may contribute to anxiety and overall well-being. - Plan: Encourage patient to continue working with their healthcare team to address this issue. Anxiety - Assessment: Patient reports increased anxiety due to lumbar pain and recent travel-related stressors, including lost luggage. Currently taking Xanax 0.25 mg twice a day for anxiety management. - Plan: Continue Xanax at the current dosage and frequency. Depression - Assessment: Patient's depression scale score is low, indicating minimal depressive symptoms. - Plan: Continue to monitor for any changes in mood or depressive symptoms during follow-up appointments. Follow-up - Plan: Schedule a follow-up appointment in three months to assess the patient's progress and make any necessary adjustments to the treatment plan. Send prescriptions for Xanax to [facility] in [place] as discussed during the visit. 10/09/2023 Other referral to the local chapter or national office of the Alzheimer's Association (8-497-998-103 0; http://www.alz .org), the Alzheimer's Disease Education and Referral Center (ADELA) (5-816-740-508 0; http://www.leandro .nih.gov/Alzhe imers/), Anxiety - Assessment: Patient reports increased anxiety due to her sister's illness and living situation. She is currently taking sertraline 25 mg daily and Xanax 0.25 mg twice daily for anxiety and depression. - Plan: a. Continue sertraline 25 mg daily and Xanax 0.25 mg twice daily. b. Encourage the patient to seek support from friends or family members to help cope with her sister's situation. c. Schedule a follow-up appointment in two months to reassess anxiety levels and medication effectiveness. Depression - Assessment: Patient is experiencing feelings of loneliness and isolation after the loss of her and anticipates being alone after her sister's passing. She is currently taking sertraline 25 mg daily for depression and anxiety. - Plan: a. Continue sertraline 25 mg daily. b. Encourage the patient to engage in social activities and consider joining a support group for individuals experiencing grief and loss. c. Monitor depressive symptoms during the follow-up appointment in two months. Memory Concerns - Assessment: Patient reports some difficulty with word recall and memory. - Plan: a. Schedule a memory test (e.g., [place] Cognitive Assessment) after the patient returns from her vacation in two months. b. Encourage the patient to engage in mentally stimulating activities to help maintain cognitive function. c. Reassess memory concerns during the follow-up appointment in two months. Medication Refill - Assessment: Patient requires a refill of her sertraline and Xanax prescriptions before her trip to [place]. - Plan: a. Send prescription refills for sertraline 25 mg daily and Xanax 0.25 mg twice daily to [facility] in [place]. b. Instruct the patient to rock picker her medication refills before her trip. Follow-up Appointment - Plan: a. Schedule a follow-up appointment in two months to reassess anxiety, depression, and memory concerns. b. Perform the memory test during the follow-up appointment. c. Review the effectiveness of the patient's current medications and make any necessary adjustments. 05/29/2024 Other Anxiety - Plan: - Continue Xanax 0.25 mg daily. - Reassess in 4 months or sooner if needed. Depression - Plan: - Continue Zoloft as prescribed. - Reassess in 4 months or sooner if needed. Memory Concerns - Plan: - Monitor memory status during follow-up appointments. - No changes to medication at this time. Asthma - Plan: - Continue Ventolin as prescribed. - Encourage patient to monitor symptoms and use inhaler as needed. Otorhinolaryng itis - Plan: - Encourage patient to follow up with primary care physician (Dr. Gamble) for further evaluation and management. Shoulder Pain and Limited Mobility - Plan: - Encourage patient to continue physical therapy as needed. - Follow up with primary care physician (Dr. Gamble) for further evaluation and management. Weight Concerns - Plan: - Encourage patient to engage in regular physical activity and maintain a balanced diet. - Reassess weight status during follow-up appointments. Sleep Quality - Plan: - Continue monitoring sleep quality during follow-up appointments. Communication with Primary Care Physician - Plan: - Send a note to Dr. Gamble regarding the patient's current status and treatment plan. Follow-up - Plan: - Schedule a follow-up appointment in 4 months or sooner if needed. Plan Of Treatment Future Test Test Name Order Date MCI Testing 10/09/2023 Next Appt Details Provider Name:Jose Ramon Curran , 09/25/2024 10:00:00 AM, [address], [address], [place], [address], Insurance Providers Payer Name Payer Address Payer Phone Subscriber Number Group Number Insured Name Patient Relationship to Insured Coverage Start Date Coverage End Date [place] [address] [place] [phone] [id number] RASHMI SNEED Self - patient is the insured [employer] [place] Medicare Supplement [id number] [employer] [facility] [place] [phone] [id number] RASHMI SNEED Self - patient is the insured Medical (General) History Medical History History ICD Code Problems: Atrial fibrillation Generalized anxiety disorder Recurrent major depression in full rem[place]
--- OUTSIDE RECORDS SUMMARY | 2024-09-14 11:54 | XMS_ITS | Referral Summary ---
Author Organization [facility] Address [address] [place] [id number] Care Team Providers Care Trimmer Loader Name Role Phone Kris Del Toro MD Primary Care Provider [phone] Encounters Date Type Department Care Team Description 07/11/2024 9:00 AM CDT Office Visit [facility] Cardiology [address] [place] [address] Dariusz Quiroz MD Chronic atrial fibrillation (HCC) (Primary Dx) from Last 3 Months Allergies Active Allergy Reactions Criticality Noted Date [...] 09/25/2017 Assessment & Plan (04/15/2024 10:59 AM NEWS WRITER): Chronic, unknown status Patient currently on levothyroxine 88 mcg oral daily Recheck thyroid function test today and further plans based on it Follow up in one year Chronic atrial fibrillation 01/19/2017 Immunizations Immunization Administration Dates Next Due Pfizer SARS-CoV-2 Monovalent Vaccination (12+ Yrs) PURPLE 06/13/2020,05/21/2020 Social History Tobacco Use Types Packs/Day Years Used Date Smoking Tobacco: Never Smokeless Tobacco: Never Tobacco Cessation:Counseling Given: Not Answered Alcohol Use Standard Drinks/Week Comments No 0 (1 standard drink = 0.6 oz pur e alcohol) Comments Unknown Sex and Gender Information Value Date Recorded Sex Assigned at Not on file Legal Sex Female 2:48 AM NEWS WRITER Gender Identity Not on file Sexual Orientation Not on file Last Filed Vital Signs Vital Sign Reading Time Taken Comments Blood Pressure 120/80 07/11/2024 9:17 AM CDT Pulse 69 07/11/2024 9:17 AM CDT Temperature 36.7 C (98.1 F) 08/23/2012 8:00 AM CDT Respiratory Rate 16 04/15/2024 10:49 AM NEWS WRITER Oxygen Saturation 99% 07/11/2024 9:17 AM CDT Inhaled Oxygen Concentration - - Weight 78.6 kg (173 lb 3.2 oz) 07/11/2024 9:17 A M CDT Height 165.1 cm (5' 5) 07/11/2024 9:17 AM CDT Body Mass Index 28.82 07/11/2024 9:17 AM CDT Plan of Treatment Not on file Insurance [facility] MEDICARE [employer] MEDICARE [employer] [place] Care Teams Trimmer Loader Relationship Specialty Start Date End Date Kris Del Toro MD PCP - General 07/04/16
== END 2024-09-14 11:50 | disposition home or self-care (01) ==
LOC: ANHIMG 11:51
PROVIDERS: PCP Internal Medicine; Visit Provider Obstetrics & Gynecology Gynecology
DX: Z12.31 Encounter for screening mammogram for malignant neoplasm of breast (principal)
CPT/HCPCS: 77063; 77067

== ENCOUNTER 2025-03-17 10:57 | Outpatient (CLI) | payer MEDICARE, OTHER, SELFPAY ==
[2025-03-17 11:33] LABS: Hematocrit 43.2 % (37.0-47.0); Hemoglobin 14.3 g/dL (12.0-15.0); Mean Corpuscular HGB Conc 33.1 g/dl (32-36); Mean Corpuscular Hemoglobin 32.1 pg (26-34); Mean Corpuscular Volume 97.1 fl (80-100); Platelet Count Result 160 k/mm3 (150-375); Red Blood Count 4.45 M/mm3 (4.2-5.4); White Blood Count 3.9 K/mm3 (4.5-10.0)
[2025-03-17 11:40] LABS: Add Urine Microscopic? YES; Appearance Urine Clear (Clear); Glucose Urine UA Negative (Negative); Leukocyte Esterase Ur Trace LEU/UL (Negative); Nitrate Urine Negative (Negative); Non Pathogenic Casts 0-2; Specific Grav Ur 1.020 (1.001-1.035)
[2025-03-17 12:01] LABS: Alanine Aminotransferase 25 U/L (6-35); Albumin Level 4.1 g/dL (3.5-5.1); Alkaline Phosphatase 91 U/L (38-126); Anion Gap 3 mmol/L (4-12); Aspartate Amino Transferase 31 U/L (14-36); Bilirubin,Total 1.3 mg/dL (0.2-1.3); Blood Urea Nitrogen 13 mg/dL (7-17); Calcium 10.8 mg/dL (8.4-10.2); Carbon Dioxide 26 mmol/L (22-30); Chloride 113 mmol/L (98-107); Cholesterol 152 mg/dL (0-200); Estimated Glomerular Filt Rate > 60; Glucose 97 mg/dL (65-110); HDL Direct 60 mg/dL; Potassium 4.0 mmol/L (3.4-5.0); Sodium 142 mmol/L (137-145); Total Protein 7.5 g/dL (6.3-8.2); Triglycerides 120 mg/dL (<150)
== END 2025-03-17 10:58 | disposition home or self-care (01) ==
PROVIDERS: PCP Internal Medicine; Visit Provider Internal Medicine
DX: I10 Essential (primary) hypertension (principal); E78.5 Hyperlipidemia, unspecified; Z79.899 Other long term (current) drug therapy; K21.9 Gastro-esophageal reflux disease without esophagitis; N20.0 Calculus of kidney
CPT/HCPCS: 36415; 80053; 80061; 81001; 82306; 85027